=== PATIENT | female | born 1960 | race Hispanic/Latino ===

== ENCOUNTER 2019-11-08 12:13 | Emergency (ER) | payer OTHER, SELFPAY ==
--- NOTE | ~2019-11-08 | XR_ITS ---
EXAMINATION: [id number] DATE: 11/08/2019 12:47 INDICATION: Right anterior rib pain. TECHNIQUE: A frontal view of the chest and 3 views of the right ribs were obtained. COMPARISON: Chest 2 views 04/20/2018 FINDINGS: The chest demonstrates clear lungs without pneumonia, pleural effusion, or pneumothorax. Th e heart size is normal. IMPRESSION: 1. No rib fracture. Reviewed, dictated and finalized at location A. IMPRESSION: 1. No rib fracture.
--- NOTE | 2019-11-08 12:18 | ED.GENADULT ---
HPI - General Adult General Chief complaint: Chest Pain Stated complaint: Rib pain Time Seen by Provider: 11/08/19 12:17 Source: patient Mode of arrival: ambulatory Limitations: no limitations History of Present Illness HPI narrative: 59-year-old female patient presents to the [facility] with complaints of right-sided rib pain x4 days. Patient states that she was leaning over her porch rail hosing down the porch. Patient states that when she came up she is started feeling pain to the right side of the ribs. Patient states he got increasingly worse last night. Patient states she has been trying to take naproxen. Denies any shortness of breath. Denies any pain with inspiration. Patient states she has had fractured rib on the left side before in the past from a fall. Related Data Home Medications Medication Instructions Recorded Confirmed atorvastatin [Lipitor] 10 mg PO DAILY 11/08/19 11/08/19 Allergies Allergy/AdvReac Type Severity Reaction Status Date / Time No Known Allergies Allergy Unverified 11/08/19 12:30 Review of Systems Review of Systems: Narrative: CONSTITUTIONAL: Denies fever, chills, or sweats. EYES: Denies visual changes, redness, or discharge. ENT: Denies rhinorrhea, congestion, sore throat, or otalgia. CARDIOVASCULAR: Denies chest pain, palpitations, or edema. RESPIRATORY: Denies cough or dyspnea. GASTROINTESTINAL: Denies abdominal pain, nausea, vomiting, or diarrhea. GENITOURINARY: Denies dysuria or hematuria. SKIN: Denies rash or itching. MUSCULOSKELETAL: Denies back pain, joint pain, or myalgia. Positive right-sided rib pain x4 days NEUROLOGIC: Denies headache, numbness, or weakness. PSYCHIATRIC: Denies anxiety or depression. [facility] Past Medical History Medical History (Updated 11/08/19 @ 12:57 by LUNA Welch) Asthma Breast cancer GERD (gastroesophageal reflux disease) GI bleed Hypercholesterolemia Rectal polyp Surgical History Surgical History (Updated 11/08/19 @ 12:30 by LUNA Welch) H/O mastectomy Left breast Family History Family History Father Family history of emphysema Social History Social History (Reviewed 11/08/19 @ 12:28 by NANCY Welch Smoking status: Never smoker Alcohol intake: never Gender identity (if verbalized by the patient): Female Comments At the time of my signature I agree with nursing past medical history, surgical, social, and family history. There is no relevant family history pertinent to the presenting complaint. Exam Narrative: Exam Narrative: GENERAL: Well-appearing, well-nourished, and in no acute distress. HEAD: Normocephalic, atraumatic. EYES: PERRLA and EOMI. ENT: Nares clear, no rhinorrhea or epistaxis. Mucous membranes moist. NECK: Supple. No lymphadenopathy CHEST: Clear to auscultation. No respiratory distress. Patient has tenderness around rib 7 on the lateral side. There is no obvious bruising or erythema present on the skin. HEART: Regular rate and rhythm. No murmur heard. Normal peripheral pulses. ABDOMEN: Soft, nontender, nondistended, normal active bowel sounds. EXTREMITIES: Normal range of motion. No edema. SKIN: Warm, dry, no rash. NEURO: No focal deficits. Alert and oriented x3. Course Reevaluation(s) Reevaluation #1: Reevaluated patient after x-ray had resulted. Discussed with patient that her x-ray is negative for any acute fractures. Discussed with her I think that her pain is most likely due to a muscle strain of the chest wall. Discussed with her she can take Tylenol and ibuprofen as needed for the pain, gentle stretching exercises as well as ice and heat to the area to help with the pain. Patient verbalized understanding denies any other questions or concerns at this time. Date: 11/08/19 Time: 12:58 Vital Signs Vital signs: Vital Signs Temperature 37.2 C 11/08/19 12:25 Pulse Rate 70 11/08/19 12:25 Respiratory Rate
[2019-11-08 12:25] VITALS: BP 134/75; PULSE 70; RESP 16; TEMP 37.2; O2SAT 100
== END 2019-11-08 13:00 | disposition home or self-care (01) ==
PROVIDERS: Emergency Provider Nurse Practitioner Family; PCP Student in an Organized Health Care Education/Training Program
DX: S29.011A Strain of muscle and tendon of front wall of thorax, initial encounter (principal); X50.1XXA Overexertion from prolonged static or awkward postures, initial encounter; J45.909 Unspecified asthma, uncomplicated; K21.9 Gastro-esophageal reflux disease without esophagitis; E78.00 Pure hypercholesterolemia, unspecified; Z85.3 Personal history of malignant neoplasm of breast
CPT/HCPCS: 71101; 99213; G0463

== ENCOUNTER 2020-08-13 12:23 | Outpatient (CLI) | payer OTHER, SELFPAY ==
--- NOTE | ~2020-08-13 | DEXA_ITS ---
Bone Density Report Name: Ofelia Costello Age: 60 Sex: Female Ethnicity: Date of : 1960 Indication: osteopenia; prior fracture; postmenopausal Referring Provider: NENITA, PHIL Study: Bone densitometry was performed. Exam Date: August 13, 2020 Accession number: [id number] Bone Density: Region BMD T-score Z-score Classification AP Spine (L1-L4) 0.833 -1.9 -0.5 Osteopenia Femoral Neck (Left) 0.672 -1.6 -0.5 Osteopenia Total Hip (Left) 0.777 -1.4 -0.4 Osteopenia Total Hip Bilateral Avg 0.788 -1.3 -0.4 Osteopenia Femoral Neck (Right) 0.656 -1.7 -0.6 Osteopenia Total Hip (Right) 0.798 -1.2 -0.3 Osteopenia World Health Organization criteria for BMD impression classify patients as: Normal (T-score at or above -1.0), Osteopenia (T-score between -1.0 and -2.5), or Osteoporosis (T-score at or below -2.5). 10-year Fracture Risk(1): Major Osteoporotic Fracture 8.4% Hip Fracture 0.9% Reported Risk Factors: [place] (), Neck BMD=0.656, BMI=25.1, previous fracture (1) FRAX(R) Version 3.08. Fracture probability calculated for an untreated patient. Fracture probability may be lower if the patient has received treatment. Previous Exams: Region Exam Age BMD T-score BMD Change BMD Change Date g/cm2 vs Baseline vs Previous AP Spine(L1-L4) 08/13/2020 60 0.833 -1.9 -0.277(-25.0%) -0.050(-5.7%)* 06/23/2016 55 0.883 -1.5 -0.227(-20.4%) -0.056(-6.0%)* 12/06/2013 53 0.940 -1.0 -0.170(-15.3%) -0.038(-3.9%)# 09/10/2011 51 0.978 -0.6 -0.132(-11.9%) -0.093(-8.7%)# 09/02/2009 49 1.071 0.2 -0.039(-3.5%)* -0.039(-3.5%)* 06/19/2007 46 1.110 0.6 Total Hip(Left) 08/13/2020 60 0.777 -1.4 -0.121(-13.4%) -0.007(-0.9%) 06/23/2016 55 0.784 -1.3 -0.114(-12.7%) -0.020(-2.5%) 12/06/2013 53 0.804 -1.1 -0.094(-10.4%) -0.048(-5.6%)# 09/10/2011 51 0.852 -0.7 -0.046(-5.1%)# -0.039(-4.4%)# 09/02/2009 49 0.891 -0.4 -0.007(-0.8%) -0.007(-0.8%) 06/19/2007 46 0.898 -0.4 Total Hip(Right) 08/13/2020 60 0.798 -1.2 -0.155(-16.2%) -0.038(-4.5%)* 06/23/2016 55 0.837 -0.9 -0.116(-12.2%) -0.017(-2.0%) 12/06/2013 53 0.853 -0.7 -0.100(-10.5%) -0.026(-2.9%)# 09/10/2011 51 0.879 -0.5 -0.074(-7.7%)# -0.057(-6.0%)# 09/02/2009 49 0.936 -0.1 -0.017(-1.8%) -0.017(-1.8%) 06/19/2007 46 0.953 0.1 *Denotes significance at 95% confidence level, LSC for AP Spine = 0.022 g/cm2, LSC for Total Hip = 0.027 g/cm2 Clinical Information Provided by Patient:
== END 2020-08-13 12:24 | disposition home or self-care (01) ==
PROVIDERS: PCP Student in an Organized Health Care Education/Training Program; Visit Provider Nurse Practitioner
DX: Z78.0 Asymptomatic menopausal state (principal); M85.88 Other specified disorders of bone density and structure, other site; M85.852 Other specified disorders of bone density and structure, left thigh; M85.851 Other specified disorders of bone density and structure, right thigh
CPT/HCPCS: 77080

== ENCOUNTER 2020-11-05 13:06 | Outpatient (CLI) | payer OTHER, SELFPAY ==
--- NOTE | ~2020-11-05 | MM_ITS ---
EXAMINATION: screening [facility] BI w alexis HISTORY: Screening mammogram TECHNIQUE: Craniocaudal and mediolateral oblique 3-D tomosynthesis images were obtained and synthetic 2-D images were generated. CAD analysis was submitted and interpreted. COMPARISON: 01/29/2019, 01/24/2019, 01/13/2018, 01/10/2017 BREAST PARENCHYMAL COMPOSITION: There are scattered areas of fibroglandular density. FINDINGS: A stable asymmetry is noted in the posterior third of the right breast on the craniocaudal view. There is no evidence of suspicious mass, calcification, or architectural distortion to suggest malignancy in either breast. There has been no suspicious interval change. IMPRESSION: 1. No mammographic evidence of malignancy. 2. Recommend routine screening mammography in one year. BI-RADS Category 2: Benign finding(s). Reviewed, dictated and finalized at location A.
== END 2020-11-05 13:07 | disposition home or self-care (01) ==
LOC: ANHIMG 13:13
PROVIDERS: PCP Student in an Organized Health Care Education/Training Program; Visit Provider Obstetrics & Gynecology Gynecology
DX: Z12.31 Encounter for screening mammogram for malignant neoplasm of breast (principal)
CPT/HCPCS: 77063; 77067

== ENCOUNTER 2021-03-12 06:16 | Inpatient (IN) | payer OTHER, SELFPAY ==
[2021-03-12] VITALS (15 sets, daily range): BP systolic 100–135; BP diastolic 50–78; PULSE 64–96; RESP 12–18; TEMP 36.8–37.5; O2SAT 93–100
--- NOTE | ~2021-03-12 | CT_ITS ---
EXAMINATION: CT abdomen pelvis w con INDICATION: Upper abdominal pain, fever TECHNIQUE: Computed tomographic images of the abdomen and pelvis were obtained after the administrati on of 100 cc of Omnipaque 350 intravenous contrast. The dose-length product (DLP) was 377.96 mGy-cm. Automated exposure control and iterative reconstruction technique were employed. COMPARISON: 08/13/2018 FINDINGS: Minimal dependent atelectasis is present in the lung bases. The heart size is normal. The l iver, spleen, pancreas, gallbladder, and adrenal glands are normal. The kidneys are unremarkable. No pathologically enlarged abdominal or pelvic lymph nodes are identified. There is no evidence of bowel obstruction. Colonic diverticulosis is noted. There is an approximately 5 cm segment of wall thicken ing in the proximal/mid transverse colon. There appears to be an intramural abscess of the colonic wa ll. There is edematous stranding of the adjacent pericolic fat with tiny foci of extraluminal gas. Th e appendix is normal. There is mild lumbar spondylosis. IMPRESSION: 1. Perforated diverticulitis of the transverse colon with possible intramural abscess. These findings were discussed with Dr. Lisseth Andrea MD in the Emergency Department at 0818 hours on 03/12/2021. Reviewed, dictated and finalized at location B. [employer] IMPRESSION: 1. Perforated diverticulitis of the transverse colon with possible intramural a bscess. These findings were discussed with Dr. Lisseth Andrea MD in the Emergen cy Department at 0818 hours on 03/12/2021.
[2021-03-12 07:00] LABS: Add Urine Microscopic? YES; Appearance Urine Cloudy (Clear); Bilirubin Urine Negative (Negative); Blood Urine 2+ (Negative); Color Urine Yellow (Yellow); Glucose Urine UA Negative (Negative); Ketones Urine Negative (Negative); Leukocyte Esterase Ur Trace LEU/UL (Negative); Mucus Urine Rare /lpf; Nitrate Urine Negative (Negative); Protein Urine 1+ mg/dL (Negative); RBC Urine >75 /hpf (0-2); Specific Grav Ur 1.018 (1.001-1.035); Squamous Epithelial Cell Urine Occasional /hpf (Few); Urobilinogen Urine Negative mg/dL (<2.0); WBC Urine 0-3 /hpf
[2021-03-12 07:05] LABS: Basophils Percent Auto 0.4 % (0.2-1.2); Eosinophils Absolute Auto 0.1 K/mm3 (0-0.3); Eosinophils Percent Auto 1.2 % (0-4.4); Hematocrit 35.9 % (37.0-47.0); Immature Granulocyte Absolute 0.03 K/mm3 (0.00-0.031); Immature Granulocyte Percent A 0.4 % (0-0.5); Lymphocytes Absolute Auto 1.49 K/mm3 (0.9-3.2); Lymphocytes Percent Auto 19.2 % (18.3-44.2); Mean Corpuscular HGB Conc 33.4 g/dl (32-36); Mean Corpuscular Volume 92.8 fl (80-100); Mean Platelet Volume 9.8 fl (7.4-10.4); Monocytes Absolute Auto 0.8 K/mm3 (0.1-0.6); Monocytes Percent Auto 10.3 % (2.6-8.5); Neutrophils Absolute Auto 5.3 K/mm3 (1.3-6.7); Neutrophils Percent Auto 68.5 % (45.5-73.1); Platelet Count Result 213 k/mm3 (150-375); Red Blood Count 3.87 M/mm3 (4.2-5.4); Red Cell Distribution Width 12.7 % (11.5-14.5); White Blood Count 7.8 K/mm3 (4.5-10.0)
[2021-03-12 07:16] LABS: Alanine Aminotransferase 29 U/L (4-35); Albumin Level 4.2 g/dL (3.5-5.1); Alkaline Phosphatase 102 U/L (38-126); Anion Gap 6 mmol/L (8-16); Aspartate Amino Transferase 46 U/L (14-36); Bilirubin,Total 0.6 mg/dL (0.2-1.3); Blood Urea Nitrogen 9 mg/dL (7-17); Calcium 8.7 mg/dL (8.4-10.2); Carbon Dioxide 28 mmol/L (22-30); Chloride 103 mmol/L (98-107); Estimated CRCL calculation 82 ml/min; Estimated Glomerular Filt Rate > 60; Glucose 122 mg/dL (65-110); Lipase 85 U/L (23-300); Potassium 3.7 mmol/L (3.4-5.0); Sodium 137 mmol/L (137-145)
[2021-03-12 07:17] LABS: Lactic Acid Reflex 0.8 mmol/L (0.7-2.1)
[2021-03-12] MEDS: SODIUM CHLORIDE 0.9% IV 1,000 ML 999 ML IV CONT (07:38)
[2021-03-12] MEDS: MORPHINE SULFATE (*CRX) 4 MG/ML INJ IV PUSH ×2 (07:38→13:03)
[2021-03-12] MEDS: ONDANSETRON INJ 4 MG/2 ML VIAL IV PUSH (07:38)
[2021-03-12] MEDS: metroNIDAZOLE 500 MG/ISO 100ML 500 MG/100 ML BAG 100 MG IVPB (08:44)
--- NOTE | 2021-03-12 08:57 | ED.ABDPAIN ---
HPI - Abdominal Pain General Chief Complaint: Abdominal Pain Stated Complaint: lower ABD pain x4 Time Seen by Provider: 03/12/21 07:30 Source: patient and family Mode of arrival: ambulatory Limitations: no limitations History of Present Illness HPI narrative: Patient complaining of right abdominal pain started on March 09, constant, gradually getting worse, low-grade fever, denies any nausea, vomiting, diarrhea. Patient reports to having constipation in the last 2 to 3 days, the pain started after taking laxative. Patient denies history of abdominal surgery. Pain gets worse with anything, nothing make it better. Related Data Allergies Allergy/AdvReac Type Severity Reaction Status Date / Time No Known Allergies Allergy Verified 03/12/21 07:36 Review of Systems Review of Systems: CONSTITUTIONAL: Denies fever, chills, or sweats. EYES: Denies visual changes, redness, or discharge. ENT: Denies rhinorrhea, congestion, sore throat, or otalgia. CARDIOVASCULAR: Denies chest pain, palpitations, or edema. RESPIRATORY: Denies cough or dyspnea. GASTROINTESTINAL: Denies abdominal pain, nausea, vomiting, or diarrhea. GENITOURINARY: Denies dysuria or hematuria. SKIN: Denies rash or itching. MUSCULOSKELETAL: Denies back pain, joint pain, or myalgia. NEUROLOGIC: Denies headache, numbness, or weakness. PSYCHIATRIC: Denies anxiety or depression. Exam Narrative: General appearance: Well-developed, well-nourished Skin: Normal color Head: Normocephalic, nontraumatic Eyes: Clear conjunctiva ENT: Oropharynx normal, ears normal, nose normal Neck: Supple, nontender Chest and respiratory: Airway patent, no respiratory distress, no accessory muscle use Heart: Regular rate/rhythm Abdomen: Soft, severe diffuse tenderness right upper and right lower quadrant with guarding and rebound, quiet bowel sounds Vascular: Normal peripheral pulses, normal capillary refill. Musculoskeletal: Normal range of motion, nontender back Neurologic: Alert and oriented ?3, [employer] is normal as tested, no gross motor deficit Course Course Emergency Course: Stable Consultations Consultation #1: DR FISHER. Requested Zosyn instead of Levaquin and Flagyl Date: 03/12/21 Time: 09:02 Vital Signs Vital signs: Vital Signs Temperature 37.5 C 03/12/21 06:30 Pulse Rate 96 03/12/21 06:30 Respiratory Rate 18 03/12/21 06:30 Blood Pressure 119/74 03/12/21 06:30 Pulse Oximetry 98 03/12/21 06:30 Temperature 37.5 C 03/12/21 06:30 Pulse Rate 96 03/12/21 06:30 Respiratory Rate 18 03/12/21 06:30 Blood Pressure 119/74 03/12/21 06:30 Pulse Oximetry 98 03/12/21 06:30 MDM - Abdominal Pain MDM Narrative Medical decision making narrative: Right abdominal pain. My differential diagnosis as below. Labs, IV fluid, IV morphine and Zofran, CT abdomen pelvis with IV contrast ordered. Differential Diagnosis Differential diagnosis: Likely abdominal pain, acute appendicitis, calculus of kidney, constipation, diverticulitis and small bowel obstruction Lab Data Result diagrams: 03/12/21 06:56 03/12/21 06:56 Labs: Lab Results 03/12/21 03/12/21 03/12/21 Range/Units 06:50 06:56 06:56 WBC 7.8 (4.5-10.0) K/mm3 RBC 3.87 L (4.2-5.4) M/mm3 Hgb 12.0 (12.0-15.0) g/dL Hct 35.9 L (37.0-47.0) % MCV 92.8 (80-100) fl MCH 31.0 (26-34) pg MCHC 33.4 (32-36) g/dl RDW 12.7 (11.5-14.5) % Plt Count 213 (150-375) k/mm3 MPV 9.8 (7.4-10.4) fl Immature Gran % (Auto) 0.4 (0-0.5) % Neut % (Auto) 68.5 (45.5-73.1) % Lymph % (Auto) 19.2 (18.3-44.2) % [place] % (Auto) 10.3 H (2.6-8.5) % Eos % (Auto) 1.2 (
--- NOTE | 2021-03-12 09:01 | PC.NURSE ---
Per CAMELIA Andrea, stop Flagyl administration and start Zosyn IV.
--- NOTE | 2021-03-12 11:49 | PM.CNGS ---
Assessment and Plan Assessment and plan (1) Diverticulitis of colon with perforation: Code(s): K57.20 - Diverticulitis of large intestine with perforation and abscess without bleeding Status: Acute Assessment and Plan: CT scan reviewed and discussed with the patient in detail. There is evidence of suspected diverticulitis of the proximal to mid transverse colon with microperforation and possible intramural abscess. This is an atypical area for diverticulitis. The patient reports a history of colonoscopies here at [facility]. It appears she had a colonoscopy by Dr. Linton in December of 2017, but I am unable to find the report. Will continue to treat this as an acute diverticulitis with broad-spectrum IV antibiotics, IV fluids, bowel rest, and analgesics. Hopefully, this will continue to improve with conservative measures. Once this acute episode has resolved, she will likely need to be referred back to GI for a colonoscopy. Will continue to follow with serial abdominal exams and labs. Thank you for allowing us to see the patient in consultation and we will continue to follow along with you. Additional Plan I have discussed the patient's case and plan of care with Dr. Dietrich. History of Present Illness Consult details Consult date: 03/12/21 Reason for consult: other (Perforated diverticulitis of the transverse colon noted on CT) Requesting physician: Lisseth Andrea MD Narrative: This is a 60-year-old female who presented to the ER with complaints of RUQ abdominal pain and low-grade fever. She reports taking a laxative for mild constipation on Tuesday, three days ago, and shortly after this dose, she began to have RUQ abdominal pain. The pain persisted over the next few days and she developed a low-grade fever. Yesterday, she felt the pain was worsening and started to be aggravated by walking. Due to this, she decided to come into the ER today for evaluation. CT scan of the abdomen and pelvis showed proximal to mid transverse colon diverticulitis with microperforation and a possible small intramural abscess. Labs showed a normal white blood cell count, and vital signs stable with a temperature of 99.5F in the ER. The patient is being admitted to the Hospitalist and started on IV Zosyn. Our service was consulted for the perforated diverticulitis. She was seen in the ER. She reports her abdominal pain improved some with the Morphine. She denies any recent nausea, vomiting, or changes in her bowels. She does report bloating. No recent diarrhea or blood noted in her stools. She denies a history of diverticulitis. Her last bowel movement was yesterday and normal for her. She has had three colonoscopies in the past reportedly with polypectomy of benign pathology. No other reported findings. She has no history of abdominal surgery. Review of Systems Review of Systems: All systems reviewed & are unremarkable except as noted in HPI and below Constitutional: Constitutional: Reports as per HPI, Reports chills, Denies fatigue and Reports fever(s) Eyes: Eyes: Reports no additional eye complaints ENT: Reports system reviewed and no additional complaints, except as documented and Reports Normal hearing present Cardiovascular: Cardiovascular: Reports no additional cardiovascular complaints, Denies chest pain and Denies leg edema Respiratory: Respiratory: Reports no additional respiratory complaints, Denies cough and Denies dyspnea Gastrointestinal: Gastrointestinal: Reports as per HPI, Reports no additional gastrointestinal complaints, Reports abdominal pain, Denies melena, Reports bloating, Denies hematochezia, Denies change in bowel habits, Denies change in stool character, Denies diarrhea, Denies nausea and Denies vomiting Genitourinary: Genitourinary: Denies hematuria and Denies dysuria Musculoskeletal: Musculoskeletal: Reports no additional musculoskeletal complaints Neurologic: Reports system reviewed and no additional complaints, e
--- NOTE | 2021-03-12 12:15 | ADMGEN ---
This patient, Ofelia Costello, was admitted to Medical Room 250-01. Patient/family oriented to hospital policies and general routines including ID bracelet, bed and alarms, visiting hours, pain management, procedures, bathroom and other care routines, personal items, smoking policy, room service/diet, and visiting hours. Information on how to activate the Rapid Response Team has been discussed. Patient/Family are encouraged to report perceived risks to care and to ask questions if they do not understand what they are told or what they should do.
[2021-03-12] MEDS: LACTATED RINGERS 1,000 ML 150 ML IV CONT (13:03)
--- NOTE | 2021-03-12 13:45 | PM.IMHP ---
H&P: HPI History of Present Illness Date/Time: 03/12/21 13:45 Chief Complaint: Abdominal pain. Narrative: This is a very pleasant 60-year-old female with hyperlipidemia who presented to the emergency department earlier this morning for evaluation of abdominal pain. She reports the gradual onset of right side abdominal discomfort starting approximately 4 days ago. Initially she thought she may be constipated and took a laxative however not long thereafter she developed pretty severe right mid and upper quadrant abdominal pain that she has a difficult time describing, possibly squeezing in nature. She also feels bloated and has been belching and passing gas much more than usual. Her symptoms seem to be worse at night and she denies any significant aggravating factors. She has been taking ibuprofen periodically and that seems to take the edge off however it sounds as though it has been pretty constant. Additionally she reports hot flashes and subjective low-grade fever. CT of the abdomen and pelvis showed proximal to mid transverse colon diverticulitis with micro perforation and possible small intramural abscess, and she is being admitted in this setting. At the time of my evaluation she continues to have some mild discomfort although her main complaint is that of thirst. Her appetite has been okay and she denies nausea and vomiting. She had a normal albeit soft bowel movement early this morning. She has not noticed any blood or mucus in the stool. She has never had similar symptoms in the past. She has no known history of diverticulosis or diverticulitis. Review of Systems Review of Systems: Twelve systems were reviewed. No chills. No cold or flu symptoms. She has not had chest pain or shortness of breath. No dysuria or gross hematuria. Urinalysis did demonstrate microscopic hematuria for which the patient has been extensively evaluated over the years with no apparent etiology. Except as documented, all other systems were reviewed and are negative. [facility] Past Medical History Medical History (Updated 03/12/21 @ 15:11 by Amalia Kilgore PA-C) Hyperlipidemia Microscopic hematuria Dating back many years for which she has been extensively evaluated with no significant obvious etiology. Osteopenia Surgical History Surgical History (Updated 03/12/21 @ 15:06 by Amalia Kilgore PA-C) History of colonoscopy with polypectomy History of left breast biopsy Breast duct excision. Family History Family History Sibling Diverticulitis Social History Social History (Updated 03/12/21 @ 15:07 by Amalia Kilgore PA-C) Social History: Surrogate decision maker: Dani Costello, spouse. Code status: Full code. Smoking status: Never smoker Alcohol intake: never Substance use: never Living arrangements: with family Additional living arrangements comments: The patient lives with her and son in [place]. She is originally from [facility]. Occupation/Education: unemployed Meds Home Medications and Allergies Home Medications Medication Instructions Recorded Confirmed Type Lacto.acidophilus-Bif.animalis 1 cap PO DAILY 03/12/21 03/12/21 History [Daily Probiotic] atorvastatin 10 mg PO DAILY 03/12/21 03/12/21 History ibandronate 150 mg PO MONTHLY 03/12/21 03/12/21 History Allergies Allergy/AdvReac Type Severity Reaction Status Date / Time No Known Allergies Allergy Verified 03/12/21 07:36 Vital Signs Vital Signs - 24 hr 03/12/21 06:30 03/12/21 08:13 03/12/21 08:20 Temperature 99.5 F Pulse Rate 96 73 72 Respiratory Rate 18 14 17 Blood Pressure 119/74 Pulse Oximetry 98 98 97 03/12/21 08:30 03/12/21 08:31 03/12/21 08:45 Temperature Pulse Rate 76 77 71 Respiratory Rate 14 13 15 Blood Pressure 135/78 Pulse Oximetry 99 98 97 03/12/21 09:00 03/12/21 09:01 03/12/21 09:53 Temperature Pulse Rate 66 67 76 Respirator
[2021-03-12] MEDS: LACTATED RINGERS 1,000 ML 75 ML IV CONT (23:25)
[2021-03-13] VITALS: BP 100/56; PULSE 69; RESP 18; TEMP 36.4; O2SAT 97
[2021-03-13 04:00] VITALS: BP 106/62; PULSE 55; RESP 18; TEMP 36.3; O2SAT 96
[2021-03-13 05:49] LABS: Basophils Percent Auto 0.6 % (0.2-1.2); Eosinophils Absolute Auto 0.1 K/mm3 (0-0.3); Eosinophils Percent Auto 2.3 % (0-4.4); Hematocrit 33.3 % (37.0-47.0); Hemoglobin 11.1 g/dL (12.0-15.0); Immature Granulocyte Absolute 0.01 K/mm3 (0.00-0.031); Immature Granulocyte Percent A 0.2 % (0-0.5); Lymphocytes Absolute Auto 1.48 K/mm3 (0.9-3.2); Lymphocytes Percent Auto 28.3 % (18.3-44.2); Mean Corpuscular HGB Conc 33.3 g/dl (32-36); Mean Platelet Volume 9.8 fl (7.4-10.4); Monocytes Absolute Auto 0.5 K/mm3 (0.1-0.6); Monocytes Percent Auto 9.4 % (2.6-8.5); Neutrophils Absolute Auto 3.1 K/mm3 (1.3-6.7); Neutrophils Percent Auto 59.2 % (45.5-73.1); Platelet Count Result 217 k/mm3 (150-375); Red Blood Count 3.58 M/mm3 (4.2-5.4); Red Cell Distribution Width 12.5 % (11.5-14.5); White Blood Count 5.2 K/mm3 (4.5-10.0)
[2021-03-13 06:06] LABS: Anion Gap 4 mmol/L (8-16); Blood Urea Nitrogen 7 mg/dL (7-17); Calcium 8.4 mg/dL (8.4-10.2); Carbon Dioxide 30 mmol/L (22-30); Chloride 103 mmol/L (98-107); Estimated CRCL calculation 82 ml/min; Estimated Glomerular Filt Rate > 60; Glucose 115 mg/dL (65-110); Magnesium 2.4 mg/dL (1.6-2.3); Potassium 3.8 mmol/L (3.4-5.0); Sodium 137 mmol/L (137-145)
[2021-03-13 06:19] LABS: CRP 12.1 mg/dL (<1.0)
[2021-03-13 08:00] VITALS: BP 110/60; PULSE 60; RESP 18; TEMP 36.5; O2SAT 96
--- NOTE | 2021-03-13 11:34 | PM.IMPN ---
Progress Note: A&P Assessment and Plan (1) Diverticulitis of colon with perforation: Code(s): K57.20 - Diverticulitis of large intestine with perforation and abscess without bleeding Status: Acute Assessment and Plan: CT showed perforated diverticulitis of the transverse colon with possible intramural abscess. General surgery consultation is appreciated. Hopefully this will resolve with conservative treatment including bowel rest. She is NPO at this time. Continue gentle IV fluids while NPO. Advance diet per general surgery. Continue IV Zosyn Analgesics available as needed Patient will need to be referred back to Dr. Linton for colonoscopy once this resolves. (2) Hyperlipidemia: Code(s): E78.5 - Hyperlipidemia, unspecified Status: Chronic Assessment and Plan: Statin on hold for now as she is NPO. Resume once diet is advanced. (3) Microscopic hematuria: Code(s): R31.29 - Other microscopic hematuria Status: Acute Assessment and Plan: A longstanding issue for the patient for which she was extensively worked up in the past. No significant findings on CT. (4) Normocytic anemia: Code(s): D64.9 - Anemia, unspecified Status: Acute Assessment and Plan: Slight decline in hemoglobin and hematocrit on labs today. May be related to diverticulitis vs dilutional effects from IV fluids. Continue to monitor H&H daily Subjective Date/time seen: 03/13/21 11:34 Interval history: Date of service: 03/13/2021 Ofelia Costello is a 60-year-old female with a history of breast cancer s/p mastectomy, hyperlipidemia, asthma, and GERD who is seen in follow-up for diverticulitis perforation abscess. She is doing very well today. She does have some abdominal pain just above the umbilicus that she rates as 4/10. Reports that is only bothersome when it is pressed on and just resting now she is comfortable. She denies any nausea, vomiting, fever, or chills. She has not had a bowel movement today but is passing gas. She is NPO at this time with the exception of ice chips which she is tolerating without difficulty. She denies shortness breath, cough, chest pain, palpitations. Denies dizziness or lightheadedness. No urinary symptoms. She requests to take a shower. Review of Systems Review of Systems: All systems reviewed & are unremarkable except as noted in HPI and below Exam Narrative: Ms. Costello is a well-nourished, well-appearing 60-year-old female who is sitting up in bed. She appears comfortable and is in NARD. Neuro: awake, alert and oriented x4, speech clear, no focal neuro deficits noted HEENMT: normocephalic, atraumatic, EOMI, sclerae anicteric, moist oral mucosa, wearing eyeglasses Neck: supple, no lymphadenopathy Respiratory: clear to auscultation bilaterally, nonlabored breathing Cardio: regular rate, regular rhythm with S1-S2 Abdomen: nondistended, normoactive bowel sounds, soft, minimally tender to palpation in the periumbilical region Extremities: no edema, erythema, or tenderness to palpation, DP pulses 2+ bilaterally Skin: no rashes or lesions, warm and dry Psych: appropriate mood and affect, judgment and insight intact Objective Data Vital Signs Vital Signs: Vital Signs - 24 hr 03/12/21 12:45 03/12/21 20:00 03/12/21 22:00 Temperature 98.4 F 98.2 F 98.2 F Pulse Rate 71 69 64 Respiratory Rate 16 18 16 Blood Pressure 118/61 100/50 L 100/50 L Pulse Oximetry 93 97 94 03/13/21 00:00 03/13/21 04:00 03/13/21 08:00 Temperature 97.6 F 97.4 F L 97.7 F Pulse Rate 69 55 L 60 Respiratory Rate 18 18 18 Blood Pressure 100/56 L 106/62 110/60 Pulse Oximetry 97 96 96 Intake/Output Intake/Output: Intake & Output 03/10/21 03/11/21 03/12/21 03/13/21 23:59 23:59 23:59 23:59 Intake Total 2150 824 Output Total 350 600 Balance 1800 224 Meds/Results Medications: Active Medications Generic Name Dose Route
[2021-03-13] MEDS: LACTATED RINGERS 1,000 ML 75 ML IV CONT (11:56)
[2021-03-13 12:00] VITALS: BP 118/63; PULSE 80; RESP 18; TEMP 36.5; O2SAT 96
--- NOTE | 2021-03-13 12:27 | PM.PNGS ---
Progress Note: A&P Assessment and Plan (1) Diverticulitis of colon with perforation: Code(s): K57.20 - Diverticulitis of large intestine with perforation and abscess without bleeding Status: Acute Assessment and Plan: pain improving. Will start clear liquid diet today. Continue IV Zosyn. Possibly home in the next 1-2 days if diet able to be advanced. Subjective Subjective Date/Time Seen: 03/13/21 12:27 Interval history: Pain improving and new fevers. States that she has minimal pain currently. She is hungry. Exam GI: Inspection: normal to inspection GI Palp: Yes Tenderness to palpation present (GI) ( Right upper quadrant), No Guarding due to palpation present (GI) and No Rebound tenderness present Auscultation: normal bowel sounds Objective Data Vital Signs Vital Signs: Vital Signs - 24 hr 03/12/21 12:45 03/12/21 20:00 03/12/21 22:00 Temperature 36.9 C 36.8 C 36.8 C Pulse Rate 71 69 64 Respiratory Rate 16 18 16 Blood Pressure 118/61 100/50 L 100/50 L Pulse Oximetry 93 97 94 03/13/21 00:00 03/13/21 04:00 03/13/21 08:00 Temperature 36.4 C 36.3 C L 36.5 C Pulse Rate 69 55 L 60 Respiratory Rate 18 18 18 Blood Pressure 100/56 L 106/62 110/60 Pulse Oximetry 97 96 96 03/13/21 12:00 Temperature 36.5 C Pulse Rate 80 Respiratory Rate 18 Blood Pressure 118/63 Pulse Oximetry 96 Intake/Output Intake/Output: Intake & Output 03/10/21 03/11/21 03/12/21 03/13/21 23:59 23:59 23:59 23:59 Intake Total 2150 1824 Output Total 350 600 Balance 1800 1224 Meds/Results Medications: Active Medications Generic Name Dose Route Start Last Admin Trade Name Freq PRN Reason Stop Dose Admin Lactated Ringer's 1,000 mls @ 75 mls/hr 03/12/21 10:20 03/13/21 11:56 Lr - Lactated Ringers Iv IV CONT 75 mls/hr .[id number] CELSA Administration Piperacillin/Tazobactam/Dextrose 3.375 gm in 50 mls @ 100 mls/hr 03/12/21 18:00 03/13/21 11:52 Zosyn 3.375 Gm/D5w 50ml Pm IVPB 100 mls/hr Q6HR CELSA Administration Morphine Sulfate 4 mg 03/12/21 10:18 03/12/21 13:03 Morphine Sulfate (*Crx) 4 Mg/Ml Inj IV PUSH 4 mg Q2H PRN Administration Pain Rated 7-10 Ondansetron HCl 4 mg 03/12/21 10:18 Ondansetron Inj 4 Mg/2 Ml Vial IV PUSH Q4H PRN Nausea Radiology Results: ITS Impressions Abdomen/Pelvis CT 03/12/21 08:06 IMPRESSION: 1. Perforated diverticulitis of the transverse colon with possible intramural abscess. These findings were discussed with Dr. Lisseth Andrea MD in the Emergency Department at 0818 hours on 03/12/2021. Labs Labs: Laboratory Results - last 24 hr 03/13/21 03/13/21 05:32 05:32 WBC 5.2 RBC 3.58 L Hgb 11.1 L Hct 33.3 L MCV 93.0 MCH 31.0 MCHC 33.3 RDW 12.5 Plt Count 217 MPV 9.8 Immature Gran % (Auto) 0.2 Neut % (Auto) 59.2 Lymph % (Auto) 28.3 [place] % (Auto) 9.4 H Eos % (Auto) 2.3 Baso % (Auto) 0.6 Lymph # (Auto) 1.48 [place] # (Auto) 0.5 Eos # (Auto) 0.1 Baso # (Auto) 0.0 Abs Immat Gran (auto) 0.01 Absolute Neuts (auto) 3.1 Absolute Nucleated RBC 0.0 Nucleated RBC % 0.0 Sodium 137 Potassium 3.8 Chloride 103 Carbon Dioxide 30 Anion Gap 4 L BUN 7 Creatinine 0.60 L Estim Creat Clear Calc 82 Estimated GFR > 60 Glucose 115 H Calcium 8.4 Magnesium 2.4 H C-Reactive Protein 12.1 H Quality VTE Prophylaxis VTE prophylaxis: mechanical ordered
[2021-03-13 16:00] VITALS: BP 115/88; PULSE 67; RESP 18; TEMP 36.9; O2SAT 100
[2021-03-13 20:00] VITALS: BP 132/64; PULSE 70; RESP 14; RESP 18; TEMP 36.7; O2SAT 98; O2SAT 99
[2021-03-14] VITALS: BP 110/56; PULSE 69; RESP 14; TEMP 36.3; O2SAT 99
[2021-03-14 04:00] VITALS: BP 110/58; PULSE 62; RESP 14; TEMP 36.6; O2SAT 96
[2021-03-14] MEDS: LACTATED RINGERS 1,000 ML 75 ML IV CONT (04:10)
[2021-03-14 06:17] LABS: Hematocrit 35.5 % (37.0-47.0); Hemoglobin 11.8 g/dL (12.0-15.0); Mean Corpuscular HGB Conc 33.2 g/dl (32-36); Mean Corpuscular Hemoglobin 31.1 pg (26-34); Mean Corpuscular Volume 93.7 fl (80-100); Mean Platelet Volume 9.9 fl (7.4-10.4); Platelet Count Result 234 k/mm3 (150-375); Red Blood Count 3.79 M/mm3 (4.2-5.4); Red Cell Distribution Width 12.3 % (11.5-14.5); White Blood Count 4.7 K/mm3 (4.5-10.0)
[2021-03-14 06:37] LABS: Anion Gap 8 mmol/L (8-16); Blood Urea Nitrogen 5 mg/dL (7-17); CRP 5.3 mg/dL (<1.0); Calcium 8.5 mg/dL (8.4-10.2); Carbon Dioxide 27 mmol/L (22-30); Chloride 106 mmol/L (98-107); Estimated CRCL calculation 97 ml/min; Estimated Glomerular Filt Rate > 60; Glucose 115 mg/dL (65-110); Potassium 3.4 mmol/L (3.4-5.0); Sodium 141 mmol/L (137-145)
--- NOTE | 2021-03-14 09:43 | PM.PNGS ---
Progress Note: A&P Assessment and Plan (1) Diverticulitis of colon with perforation: Code(s): K57.20 - Diverticulitis of large intestine with perforation and abscess without bleeding Status: Acute Assessment and Plan: pain improving. Was up to a full liquid diet today. Continue IV Zosyn. Home if diet able to be advanced. I will put in for oral antibiotics for her to begin at home tonight. Would suggest that she get her noon dose of antibiotic here with the IV Zosyn and then okay to be discharged. Additional Plan She needs to go home on a low-fiber diet with plans to switch to a high-fiber diet after she sees Dr. Dietrich in 2 weeks.. Subjective Subjective Date/Time Seen: 03/14/21 09:43 Patient reports: no new complaints and feels better Interval history: The patient is sitting on the side of the bed when I entered the room. She states that she feels pretty good. Still has a little tenderness when she pushes in the right upper quadrant but has had several small loose bowel movements. Tolerated a full liquid breakfast. Review of Systems Review of Systems: All systems reviewed & are unremarkable except as noted in HPI and below Constitutional: Constitutional: Reports as per HPI, Denies chills and Denies fever(s) Cardiovascular: Cardiovascular: Denies chest pain and Denies dyspnea Respiratory: Respiratory: Reports no additional respiratory complaints and Denies dyspnea Gastrointestinal: Gastrointestinal: Reports as per HPI and Denies bloating Musculoskeletal: Musculoskeletal: Reports no additional musculoskeletal complaints Neurologic: Denies memory loss Psychiatric: Psychiatric: Denies anxiety and Denies memory loss Exam Const: General: comfortable, no acute distress, alert and awake Nutritional Appearance: average body habitus HENMT: Head: normocephalic and atraumatic Ears: hearing grossly normal bilaterally Mouth: Yes moist mucous membranes Resp: Effort & Inspection: no respiratory distress Auscultation: clear to auscultation bilaterally GI: Inspection: normal to inspection, no scars and other (mildly distended) Auscultation: normal bowel sounds Rectal Exam: deferred Skin: General skin exam: normal color and no rashes or lesions noted Neuro: General: moves all extremities and no focal motor deficits Cranial nerves: Yes CN's II-XII intact bilaterally and Yes Equal, round and reactive pupils present Speech: normal speech Motor exam (neuro): 5/5 motor strength present throughout Extrem: General: normal to inspection and no clubbing, cyanosis or edema Objective Data Vital Signs Vital Signs: Vital Signs - 24 hr 03/13/21 12:00 03/13/21 16:00 03/13/21 20:00 Temperature 36.5 C 36.9 C 36.7 C Pulse Rate 80 67 70 Respiratory Rate 18 18 18 Blood Pressure 118/63 115/88 132/64 Pulse Oximetry 96 100 99 03/14/21 00:00 03/14/21 04:00 Temperature 36.3 C L 36.6 C Pulse Rate 69 62 Respiratory Rate 14 14 Blood Pressure 110/56 L 110/58 L Pulse Oximetry 99 96 Intake/Output Intake/Output: Intake & Output 03/11/21 03/12/21 03/13/21 03/14/21 23:59 23:59 23:59 23:59 Intake Total 2150 2854 9591 Output Total 350 600 Balance 1800 2254 9591 Meds/Results Medications: Active Medications Generic Name Dose Route Start Last Admin Trade Name Freq PRN Reason Stop Dose Admin Lactated Ringer's 1,000 mls @ 75 mls/hr 03/12/21 10:20 03/14/21 04:10 Lr - Lactated Ringers Iv IV CONT 75 mls/hr .[id number] CELSA Administration Piperacillin/Tazobactam/Dextrose 3.375 gm in 50 mls @ 100 mls/hr 03/12/21 18:00 03/14/21 05:40 Zosyn 3.375 Gm/D5w 50ml Pm IVPB Infused Q6HR CELSA Infusion Morphine Sulfate 4 mg 03/12/21 10:18 03/12/21 13:03 Morphine Sulfate (*Crx) 4 Mg/Ml Inj IV PUSH 4 mg Q2H PRN Administration Pain Rated 7-10 Ondansetron HCl 4 mg 03/12/21 10:18 Ondansetron Inj 4 Mg/2 Ml Vial IV PUSH Q4H PRN Nausea Radiology Results: ITS Im
[2021-03-14 10:00] VITALS: BP 115/67; PULSE 73; RESP 16; TEMP 36.4; O2SAT 97
--- NOTE | 2021-03-14 10:36 | PM.DS ---
DS: Admitting Diagnosis Discharge Date 03/14/2021 Admitting Diagnosis Diverticulitis with perforation DS: Discharge Diagnosis Discharge Diagnosis (1) Diverticulitis of colon with perforation: Code(s): K57.20 - Diverticulitis of large intestine with perforation and abscess without bleeding Status: Acute Assessment and Plan: CT showed perforated diverticulitis of the transverse colon with possible intramural abscess. She was seen in consultation by General surgery. She was started on IV Zosyn. She had improvement in symptoms with antibiotics, analgesics, IV fluid rehydration, and bowel rest. Remained afebrile and with normal white blood cell count. She was able to advance to a low-fiber diet. Pain improved significantly and she was having loose bowel movements. She will continue p.o. Augmentin for 10 days and will follow-up with General surgery in 2 weeks. She will then need to be referred to GI for colonoscopy. (2) Hyperlipidemia: Code(s): E78.5 - Hyperlipidemia, unspecified Status: Chronic Assessment and Plan: Continue statin (3) Microscopic hematuria: Code(s): R31.29 - Other microscopic hematuria Status: Acute Assessment and Plan: A longstanding issue for the patient for which she was extensively worked up in the past. No significant findings on CT. (4) Normocytic anemia: Code(s): D64.9 - Anemia, unspecified Status: Acute Assessment and Plan: Slight decline in hemoglobin and hematocrit from baseline, most likely related to dilutional effect from IV fluids. Improvement in hemoglobin and hematocrit on discharge. Anticipate normalization of H&H DS: Summary Hospital Course Hospital Course: Date of admission: 03/12/2021 Date of discharge: 03/14/2021 Ofelia Costello is a 60-year-old female with a history of breast cancer s/p mastectomy, hyperlipidemia, asthma, and GERD who presented to the emergency department on 03/12/2021 with complaints of right-sided abdominal pain ongoing for 3-4 days with low-grade fever and constipation. On presentation to the emergency department, her vital signs were stable, she was afebrile, CBC and BMP unremarkable, CT abdomen/pelvis with perforated diverticulitis the transverse colon with possible intramural abscess. She was admitted to the hospitalist service for further evaluation and management was seen in consultation by General surgery. Please see above for further details. She had symptomatic improvement with bowel rest and antibiotics. Her diet was able to be advanced. Her pain resolved. Given her overall improvement, she was determined to no longer require inpatient care and was felt to be stable for discharge. General surgery service in agreement with plans for discharge. She will continue p.o. Augmentin to complete 10 days of antibiotic therapy outpatient and will need to follow-up in 2 weeks in their office. Given her overall improvement, she was determined to no longer require inpatient care and was felt to be stable for discharge. We discussed worrisome signs and symptoms for which to return and she was educated on her medications. She was discharged in hemodynamically stable condition on 03/14/2021. Status at Discharge Functional status at discharge: independent ambulation Overall status at discharge: patient is progressing back to baseline Time Spent with Patient Time attestation: Total time spent providing and/or coordinating discharge services: 45 minutes Exam Narrative: Ms. Costello is a well-nourished, well-appearing 60-year-old female who is sitting in a chair by the bedside. She appears comfortable and is in NARD. Neuro: awake, alert and oriented x4, speech clear, no focal neuro deficits noted HEENMT: normocephalic, atraumatic, EOMI, sclerae anicteric, moist oral mucosa, wearing eyeglasses Neck: supple, no lymphadenopathy Respiratory: clear to auscultation bilaterally, nonlabored
== END 2021-03-14 15:11 | disposition home or self-care (01) | DRG 392 ==
LOC: ANHED 09:02 → ANH2MED 14:07
PROVIDERS: Emergency Medicine; Admitting Provider Internal Medicine; Emergency Provider Emergency Medicine; PCP Student in an Organized Health Care Education/Training Program; Visit Provider Physician Assistant
DX: K57.20 Diverticulitis of large intestine with perforation and abscess without bleeding (principal); D64.9 Anemia, unspecified; R31.29 Other microscopic hematuria; E78.5 Hyperlipidemia, unspecified; K21.9 Gastro-esophageal reflux disease without esophagitis; Z85.3 Personal history of malignant neoplasm of breast; Z86.010 Personal history of colon polyps
CPT/HCPCS: 36415; 74177; 80048; 80053; 81001; 83605; 83690; 83735; 85025; 85027; 86140; 96361; 96365; 96375; 99285; J2270; J2405; J2543; J7030; J7120; Q9967

== ENCOUNTER 2021-06-12 00:15 | Day surgery (SDC) | payer OTHER, SELFPAY ==
[2021-04-28 14:09] VITALS: BMI 24.1
--- NOTE | 2021-06-11 10:00 | P.PNAN_ITS ---
Anes - Initial Pre Proc Eval Procedure: Operation Date: 06/12/21 10:00 Proposed Procedures p Colonoscopy - Joseluis Linton MD Date/Time: 06/11/21 10:00 Surgeon: Joseluis Linton MD Pre Op Diagnosis: hx of colon polyps, diverticulitis Patient Data Age: 60 Gender: F Height: 1.7 m Weight: 70 kg Allergies Allergy/AdvReac Type Severity Reaction Status Date / Time No Known Allergies Allergy Verified 06/12/21 08:55 Home Medications Medication Instructions Recorded Confirmed Type Daily Probiotic 1 cap PO DAILY 03/12/21 06/12/21 History atorvastatin 10 mg PO DAILY 03/12/21 06/12/21 History ibandronate 150 mg PO MONTHLY 03/12/21 06/12/21 History Patient hx anesthesia problems: none Family hx anesthesia problems: none Results Review: All pre-operative results and documents have been reviewed as part of the pre-operative evaluation. [facility] Past Medical History Medical History Asthma Breast cancer GERD (gastroesophageal reflux disease) GI bleed Hypercholesterolemia Hyperlipidemia Microscopic hematuria Dating back many years for which she has been extensively evaluated with no significant obvious etiology. Osteopenia Rectal polyp Surgical History Surgical History H/O mastectomy Left breast History of colonoscopy with polypectomy History of left breast biopsy Breast duct excision. Family History Family History Sibling Diverticulitis Father Family history of emphysema Social History Social History Social History: Surrogate decision maker: Dani Costello, spouse. Code status: Full code. Smoking status: Never smoker Alcohol intake: never Substance use: never Substance use type: does not use Living arrangements: with family Additional living arrangements comments: The patient lives with her and son in [place]. She is originally from [facility]. Gender identity (if verbalized by the patient): Female Spiritual care concerns: No Anes - Eval Final PreProcedure Day of Procedure 06/11/21 10:00 Patient weight: normal Heart: regular rate and rhythm Lungs: clear to auscultation and normal air movement Airway: Mallampati scale class II Neurological: alert and oriented Last oral intake: >/= 8 hours ASA classification: II Emergent: no Anesthetic plan: proceed Anesthesia type and monitoring: general GIVS and standard monitoring Results Review: All pre-operative results and documents have been reviewed as part of the pre-operative evaluation. Informed Consent: The patient's anesthetic plan and its attendant risks and benefits were discussed with the patient/family/POA. Questions were solicited and answers provided to the satisfaction of the patient/family/POA.
[2021-06-12 08:52] VITALS: BP 135/59; PULSE 84; RESP 16; TEMP 36.7; O2SAT 99; BMI 24.2
--- NOTE | 2021-06-12 09:02 | WPDGICN ---
Assessment and Plan Assessment and plan (1) History of colon polyps: Code(s): Z86.010 - Personal history of colonic polyps Status: Acute Assessment and Plan: Patient has a history of colon polyps most recently 2018. Plan is for surveillance colonoscopy now and intervals in the future. (2) Diverticulitis of colon with perforation: Code(s): K57.20 - Diverticulitis of large intestine with perforation and abscess without bleeding Status: Acute Assessment and Plan: Patient had episode of diverticulitis CT scan suggested small perforation. Plan is for surveillance colonoscopy now that she has begun to improve. High-fiber diet also advised at this time. GI Consult Note Consult date/time: 06/12/21 09:02 HPI: Ofelia Costello is a 60 year old female Presents for colonoscopy. Patient has a prior history of colon polyps. Most recently 2017. In March had an episode of diverticulitis. She presents today for follow-up colonoscopy. Patient reports that her bowel habits have returned to normal. She occasionally will get mild right-sided abdominal discomfort. She denies any bleeding. Her weight has remained stable. Her family history is noncontributory. Review of Systems Review of Systems: All systems reviewed & are unremarkable except as noted in HPI and below PMFSH Past Medical History Medical History Asthma Breast cancer GERD (gastroesophageal reflux disease) GI bleed Hypercholesterolemia Hyperlipidemia Microscopic hematuria Dating back many years for which she has been extensively evaluated with no significant obvious etiology. Osteopenia Rectal polyp Surgical History Surgical History H/O mastectomy Left breast History of colonoscopy with polypectomy History of left breast biopsy Breast duct excision. Family History Family History Sibling Diverticulitis Father Family history of emphysema Social History Social History Social History: Surrogate decision maker: Dani Costello, spouse. Code status: Full code. Smoking status: Never smoker Alcohol intake: never Substance use: never Substance use type: does not use Living arrangements: with family Additional living arrangements comments: The patient lives with her and son in [place]. She is originally from [facility]. Gender identity (if verbalized by the patient): Female Spiritual care concerns: No Meds Home Medications and Allergies Home Medications Medication Instructions Recorded Confirmed Type Daily Probiotic 1 cap PO DAILY 03/12/21 06/12/21 History atorvastatin 10 mg PO DAILY 03/12/21 06/12/21 History ibandronate 150 mg PO MONTHLY 03/12/21 06/12/21 History Allergies Allergy/AdvReac Type Severity Reaction Status Date / Time No Known Allergies Allergy Verified 06/12/21 08:55 Exam Narrative: Physical exam reveals patient be alert. Vital signs stable. HEENT exam is unremarkable. Patient is anicteric. Lungs are clear to auscultation and percussion. Heart is without murmur or extra sounds. Abdomen bowel sounds are present soft nontender with no organomegaly. Digital external rectal exam is normal.
[2021-06-12] MEDS: LACTATED RINGERS 1,000 ML 150 ML IV CONT (09:15)
[2021-06-12 09:51] VITALS: BP 84/49; PULSE 63; RESP 18; O2SAT 96
[2021-06-12 10:01] VITALS: BP 87/49; PULSE 60; RESP 21; O2SAT 98
[2021-06-12 10:11] VITALS: BP 114/70; PULSE 69; RESP 17; O2SAT 98
== END 2021-06-12 10:22 | disposition home or self-care (01) ==
PROVIDERS: PCP Student in an Organized Health Care Education/Training Program; Visit Provider Internal Medicine Gastroenterology
PROC: 0DJD8ZZ Inspection of Lower Intestinal Tract, Via Natural or Artificial Opening Endoscopic (ICD-10-PCS; CPT 45378; principal; 2021-06-12 10:00)
DX: Z12.11 Encounter for screening for malignant neoplasm of colon (principal); K64.8 Other hemorrhoids; K57.30 Diverticulosis of large intestine without perforation or abscess without bleeding; Z86.010 Personal history of colon polyps; Z87.19 Personal history of other diseases of the digestive system; E78.5 Hyperlipidemia, unspecified; K21.9 Gastro-esophageal reflux disease without esophagitis; J45.909 Unspecified asthma, uncomplicated; Z85.3 Personal history of malignant neoplasm of breast; Z90.12 Acquired absence of left breast and nipple
CPT/HCPCS: 45378; J2704; J7120

== ENCOUNTER 2021-08-21 10:31 | Outpatient (CLI) | payer OTHER, SELFPAY ==
[2021-08-21 11:09] LABS: Basophils Percent Auto 0.8 % (0.2-1.2); Eosinophils Absolute Auto 0.1 K/mm3 (0-0.3); Hematocrit 38.3 % (37.0-47.0); Hemoglobin 12.6 g/dL (12.0-15.0); Immature Granulocyte Absolute 0.01 K/mm3 (0.00-0.031); Immature Granulocyte Percent A 0.2 % (0-0.5); Lymphocytes Absolute Auto 2.33 K/mm3 (0.9-3.2); Lymphocytes Percent Auto 46.3 % (18.3-44.2); Mean Corpuscular HGB Conc 32.9 g/dl (32-36); Mean Corpuscular Hemoglobin 30.7 pg (26-34); Mean Corpuscular Volume 93.2 fl (80-100); Monocytes Absolute Auto 0.3 K/mm3 (0.1-0.6); Monocytes Percent Auto 6.2 % (2.6-8.5); Neutrophils Absolute Auto 2.2 K/mm3 (1.3-6.7); Neutrophils Percent Auto 44.5 % (45.5-73.1); Platelet Count Result 252 k/mm3 (150-375); Red Blood Count 4.11 M/mm3 (4.2-5.4); Red Cell Distribution Width 12.4 % (11.5-14.5)
[2021-08-21 11:12] LABS: Alanine Aminotransferase 23 U/L (4-35); Albumin Level 4.7 g/dL (3.5-5.1); Alkaline Phosphatase 56 U/L (38-126); Anion Gap 7 mmol/L (8-16); Aspartate Amino Transferase 37 U/L (14-36); Bilirubin,Total 0.5 mg/dL (0.2-1.3); Blood Urea Nitrogen 20 mg/dL (7-17); Calcium 8.5 mg/dL (8.4-10.2); Carbon Dioxide 27 mmol/L (22-30); Chloride 105 mmol/L (98-107); Cholesterol 198 mg/dL (0-200); Creatine Kinase 109 U/L (30-135); Estimated Glomerular Filt Rate > 60; Glucose 108 mg/dL (65-110); HDL Direct 68 mg/dL; Potassium 4.1 mmol/L (3.4-5.0); Sodium 139 mmol/L (137-145); Triglycerides 74 mg/dL (<150)
[2021-08-21 11:16] LABS: Hemoglobin A1C 5.7 % (<5.7)
[2021-08-21 11:24] LABS: LDL Cholesterol Direct 84 mg/dL
[2021-08-21 11:36] LABS: Vitamin D 25 Hydroxy 86.7 ng/mL
== END 2021-08-21 10:32 | disposition home or self-care (01) ==
LOC: ANHLAB 10:35
PROVIDERS: PCP Student in an Organized Health Care Education/Training Program; Visit Provider Student in an Organized Health Care Education/Training Program
DX: Z00.00 Encounter for general adult medical examination without abnormal findings (principal); Z13.220 Encounter for screening for lipoid disorders; E55.9 Vitamin D deficiency, unspecified; Z13.29 Encounter for screening for other suspected endocrine disorder; Z13.228 Encounter for screening for other metabolic disorders; Z13.0 Encounter for screening for diseases of the blood and blood-forming organs and certain disorders involving the immune mechanism; R73.9 Hyperglycemia, unspecified
CPT/HCPCS: 36415; 80053; 80061; 82306; 82550; 83036; 84443; 85025

== ENCOUNTER 2022-02-15 09:46 | Outpatient (CLI) | payer OTHER, SELFPAY ==
--- NOTE | ~2022-02-15 | MM_ITS ---
EXAMINATION: MM screening keeley BI w alexis HISTORY: Screening TECHNIQUE: Craniocaudal and mediolateral oblique 3-D tomosynthesis images were obtained and synthetic 2-D images were generated. CAD analysis was submitted and interpreted. COMPARISON: Comparison to multiple prior studies sequentially, with oldest reviewed study dated 12/21. BREAST PARENCHYMAL COMPOSITION: There are scattered areas of fibroglandular density. FINDINGS: There is no evidence of suspicious mass, calcification, or architectural distortion to sugg est malignancy in either breast. There has been no suspicious interval change. IMPRESSION: 1. No mammographic evidence of malignancy. 2. Recommend routine screening mammography in one year. BI-RADS Category 1: Negative Reviewed, dictated and finalized at location A.
== END 2022-02-15 09:47 | disposition home or self-care (01) ==
LOC: ANHIMG 09:48
PROVIDERS: PCP Student in an Organized Health Care Education/Training Program; Visit Provider Student in an Organized Health Care Education/Training Program
DX: Z12.31 Encounter for screening mammogram for malignant neoplasm of breast (principal)
CPT/HCPCS: 77063; 77067

== ENCOUNTER 2022-06-26 10:51 | Emergency (ER) | payer OTHER, SELFPAY ==
--- NOTE | ~2022-06-26 | US_ITS ---
EXAMINATION: US venous doppler LE RT DATE: 06/26/2022 16:14 INDICATION: pain . TECHNIQUE: Grayscale images without and with compression and Doppler images of the right lower extrem ity veins were obtained. COMPARISON: None FINDINGS: The right common femoral vein, profunda (deep) femoral vein, femoral vein, popliteal vein, peroneal v ein, posterior tibial veins, gastrocnemius vein, and greater saphenous vein are patent. IMPRESSION: 1. Patent right lower extremity veins. No evidence of deep venous thrombosis. Reviewed, dictated and finalized at location K. [facility]EN[facility]
[2022-06-26 10:56] VITALS: BP 134/74; PULSE 80; RESP 20; TEMP 36.4; O2SAT 99
[2022-06-26 15:22] VITALS: BP 128/84; PULSE 65; RESP 18; O2SAT 96
--- NOTE | 2022-06-26 17:10 | ED.GENADULT ---
HPI - General Adult General Chief complaint: Extremity Problem,Nontraumatic Stated complaint: Right Leg red warm, surgery in may on leg Time Seen by Provider: 06/26/22 14:41 History of Present Illness HPI narrative: Patient is a 61-year-old female who presents ER for further evaluation of her right leg. She had a procedure performed on a vein in her right leg 1 month ago. Since then she has had some nodules noted in her leg. She was seen at an outside ER and diagnosed with superficial phlebitis. Unsure if she had an ultrasound. She would like a second opinion. No chest pain or chest pressure or difficulty breathing. No lower extremity swelling. Related Data Home Medications Medication Instructions Recorded Confirmed Lactobacillus 1 cap PO DAILY 03/12/21 06/12/21 acidophilus-Bifidobac.animalis 2.5 billion cell capsule (Daily Probiotic) atorvastatin 10 mg tablet 10 mg PO DAILY 03/12/21 06/12/21 ibandronate 150 mg tablet 150 mg PO MONTHLY 03/12/21 06/12/21 Allergies Allergy/AdvReac Type Severity Reaction Status Date / Time No Known Allergies Allergy Verified 06/26/22 10:53 Review of Systems Review of Systems: All systems reviewed & are unremarkable except as noted in HPI and below Constitutional: Constitutional: Denies chills, Denies fatigue and Denies fever(s) ENT: Denies nasal congestion and Denies sore throat Cardiovascular: Cardiovascular: Denies chest pain, Denies rapid heart rate and Denies radiating jaw, neck or arm pain Respiratory: Respiratory: Denies cough and Denies dyspnea Musculoskeletal: Musculoskeletal: Denies arthralgias, Denies joint swelling and Denies muscle cramps Integumentary/Breasts: Skin/Breast: Denies erythema and Denies rash Comments: Bruising right thigh PMFSH Past Medical History Medical History Asthma Breast cancer GERD (gastroesophageal reflux disease) GI bleed Hypercholesterolemia Hyperlipidemia Microscopic hematuria Dating back many years for which she has been extensively evaluated with no significant obvious etiology. Osteopenia Rectal polyp Surgical History Surgical History H/O mastectomy Left breast History of colonoscopy with polypectomy History of left breast biopsy Breast duct excision. Family History Family History Sibling Diverticulitis Father Family history of emphysema Social History Social History Social History: Surrogate decision maker: Dani Costello, spouse. Code status: Full code. Smoking status: Former smoker Alcohol intake: never Substance use: never Substance use type: does not use Living arrangements: with family Additional living arrangements comments: The patient lives with her and son in [place]. She is originally from [facility]. Occupation/Education: unemployed Gender identity (if verbalized by the patient): Female Spiritual care concerns: No Exam Narrative: GENERAL: Well-appearing, well-nourished, and in no acute distress. HEAD: Normocephalic, atraumatic. CHEST: Clear to auscultation. No respiratory distress. HEART: Regular rate and rhythm. Normal peripheral pulses. ABDOMEN: Soft, nontender, nondistended. EXTREMITIES: Normal range of motion. No edema. Phlebitis of the strep vein in the right lower extremity near the knee and in the proximal thigh with bruising along the vein that was treated. No redness. No tenderness. SKIN: Warm, dry, no rash. NEURO: No focal deficits. Alert and oriented x3. PSYCH: Normal mood and affect. Course Course Emergency Course: Patient aware of diagnosis and treatment plan discharge home. No DVT. Vital Signs Vital signs: Vital Signs Temperature 97.6 F 06/26/22 10:56 Pulse Rate 80 06/26/22 10:56 Respiratory
== END 2022-06-26 17:37 | disposition home or self-care (01) ==
PROVIDERS: Emergency Provider Emergency Medicine; PCP Student in an Organized Health Care Education/Training Program
DX: T81.72XA Complication of vein following a procedure, not elsewhere classified, initial encounter (principal); I80.01 Phlebitis and thrombophlebitis of superficial vessels of right lower extremity; J45.909 Unspecified asthma, uncomplicated; E78.00 Pure hypercholesterolemia, unspecified; M85.80 Other specified disorders of bone density and structure, unspecified site; K21.9 Gastro-esophageal reflux disease without esophagitis; Z85.3 Personal history of malignant neoplasm of breast; Z87.19 Personal history of other diseases of the digestive system; Z87.891 Personal history of nicotine dependence
CPT/HCPCS: 93971; 99284

== ENCOUNTER 2022-07-20 15:39 | Emergency (ER) | payer OTHER, SELFPAY ==
[2022-07-20 16:12] VITALS: BP 132/67; PULSE 70; RESP 18; TEMP 36.8; O2SAT 98
[2022-07-20 16:28] LABS: Basophils Percent Auto 0.6 % (0.2-1.2); Eosinophils Absolute Auto 0.1 K/mm3 (0-0.3); Eosinophils Percent Auto 1.6 % (0-4.4); Hematocrit 38.5 % (37.0-47.0); Hemoglobin 12.6 g/dL (12.0-15.0); Immature Granulocyte Absolute 0.02 K/mm3 (0.00-0.031); Immature Granulocyte Percent A 0.3 % (0-0.5); Lymphocytes Absolute Auto 2.31 K/mm3 (0.9-3.2); Lymphocytes Percent Auto 34.4 % (18.3-44.2); Mean Corpuscular HGB Conc 32.7 g/dl (32-36); Mean Corpuscular Hemoglobin 30.7 pg (26-34); Mean Corpuscular Volume 93.7 fl (80-100); Mean Platelet Volume 9.8 fl (7.4-10.4); Monocytes Absolute Auto 0.4 K/mm3 (0.1-0.6); Monocytes Percent Auto 6.5 % (2.6-8.5); Neutrophils Absolute Auto 3.8 K/mm3 (1.3-6.7); Neutrophils Percent Auto 56.6 % (45.5-73.1); Platelet Count Result 238 k/mm3 (150-375); Red Blood Count 4.11 M/mm3 (4.2-5.4); Red Cell Distribution Width 12.3 % (11.5-14.5); White Blood Count 6.7 K/mm3 (4.5-10.0)
[2022-07-20 16:41] LABS: Anion Gap 5 mmol/L (8-16); Blood Urea Nitrogen 19 mg/dL (7-17); Carbon Dioxide 29 mmol/L (22-30); Chloride 103 mmol/L (98-107); Estimated CRCL calculation 81 ml/min; Estimated Glomerular Filt Rate > 60; Glucose 97 mg/dL (65-110); Potassium 4.5 mmol/L (3.4-5.0); Sodium 137 mmol/L (137-145)
--- NOTE | 2022-07-20 18:36 | PC.NURSE ---
Active ROM of affected joint noted. Pt reports green drainage 1 weeks ago. And throbbing pain started worsening over past 3 days. PT denies fever at this time.
[2022-07-20 19:03] VITALS: BP 131/81; PULSE 65; RESP 16; TEMP 36.2; O2SAT 98
--- NOTE | 2022-07-20 19:10 | ED.EXTPRO ---
HPI - Extremity Problem General Chief complaint: Extremity Problem,Nontraumatic <Neri Prajapati PA-C - Last Filed: 07/20/22 22:45> Stated complaint: Cellulits <JAVON Garay Last Filed: 07/20/22 22:45> Time Seen by Provider: 07/20/22 18:27 <Neri Prajapati PA-C - Last Filed: 07/20/22 22:45> Source: patient <JAVON Garay Last Filed: 07/20/22 22:45> Mode of arrival: ambulatory <JAVON Garay Last Filed: 07/20/22 22:45> Limitations: no limitations <JAVON Garay Last Filed: 07/20/22 22:45> History of Present Illness HPI Narrative: This is a 61-year-old female with PMH of HLD, diverticulitis presents to the ED with chief complaint of her right great toe redness and swelling x3 days. Reports an initial lesion 2 weeks ago that she popped and noticed green fluid. She thought the problem had resolved but in the last 3 to 4 days there has been increased redness and swelling in the area. Also reports pain. Denies fevers, chills, weakness, headache, LOC. Denies any streaking up the leg. Reports she has been able to walk. <Neri Prajapati PA-C - Last Filed: 07/20/22 22:45> Related Data Home medications: Home Medications Medication Instructions Recorded Confirmed Lactobacillus 1 cap PO DAILY 03/12/21 06/12/21 acidophilus-Bifidobac.animalis 2.5 billion cell capsule (Daily Probiotic) atorvastatin 10 mg tablet 10 mg PO DAILY 03/12/21 06/12/21 ibandronate 150 mg tablet 150 mg PO MONTHLY 03/12/21 06/12/21 <JAVON Garay Last Filed: 07/20/22 22:45> Allergies/Adverse reactions: Allergies Allergy/AdvReac Type Severity Reaction Status Date / Time No Known Allergies Allergy Verified 07/20/22 18:33 <JAVON Garay Last Filed: 07/20/22 22:45> Review of Systems Review of Systems: CONSTITUTIONAL: Denies fever, chills, or sweats. EYES: Denies visual changes, redness, or discharge. ENT: Denies rhinorrhea, congestion, sore throat, or otalgia. CARDIOVASCULAR: Denies chest pain, palpitations, or edema. RESPIRATORY: Denies cough or dyspnea. GASTROINTESTINAL: Denies abdominal pain, nausea, vomiting, or diarrhea. GENITOURINARY: Denies dysuria or hematuria. SKIN: Endorses redness and pain of the right great toe. Denies rash or itching. MUSCULOSKELETAL: Denies back pain, joint pain, or myalgia. NEUROLOGIC: Denies headache, numbness, dizziness, or weakness. PSYCHIATRIC: Denies anxiety or depression. <Neri Prajapati PA-C - Last Filed: 07/20/22 22:45> [facility] Past Medical History Medical History: Medical History Asthma Breast cancer GERD (gastroesophageal reflux disease) GI bleed Hypercholesterolemia Hyperlipidemia Microscopic hematuria Dating back many years for which she has been extensively evaluated with no significant obvious etiology. Osteopenia Rectal polyp <Neri Prajapati PA-C - Last Filed: 07/20/22 22:45> Surgical History Surgical History: Surgical History H/O mastectomy Left breast History of colonoscopy with polypectomy History of left breast biopsy Breast duct excision. <Neri Prajapati PA-C - Last Filed: 07/20/22 22:45> Family History Family History: Family History Sibling Diverticulitis Father Family history of emphysema <Neri Prajapati PA-C - Last Filed: 07/20/22 22:45> Social History Social History: Social History Social History: Surrogate decision maker: Dani Costello, spouse. Code status: Full code. Smoking status: Former smoker Alcohol intake: never Substance use: never Substance use type: does not use Living arrangements: with family Additional living arrangements comments: The patient lives with her and son in [place].
[2022-07-20] MEDS: CEPHALEXIN 500 MG CAPSULE PO (19:20)
--- NOTE | 2022-07-20 19:20 | PC.NURSE ---
Report given to EVE Cesar
== END 2022-07-20 19:27 | disposition home or self-care (01) ==
PROVIDERS: Emergency Medicine; Emergency Provider Physician Assistant; PCP Student in an Organized Health Care Education/Training Program
DX: L03.031 Cellulitis of right toe (principal); E78.00 Pure hypercholesterolemia, unspecified; M85.80 Other specified disorders of bone density and structure, unspecified site; Z87.891 Personal history of nicotine dependence; Z85.3 Personal history of malignant neoplasm of breast
CPT/HCPCS: 36415; 80048; 85025; 99283; A9270

== ENCOUNTER 2022-10-23 08:33 | Outpatient (CLI) | payer OTHER, SELFPAY ==
--- NOTE | ~2022-10-23 | DEXA_ITS ---
Bone Density Report Name: MACARIO PURCELL Age: 62 Sex: Female Ethnicity: Date of : 1960 Indication: osteopenia; postmenopausal Referring Provider: NENITA, PHIL Study: Bone densitometry was performed. Exam Date: October 23, 2022 Accession number: [id number] Bone Density: Region BMD T-score Z-score Classification AP Spine(L1-L4) 0.840 -1.9 -0.3 Osteopenia Femoral Neck (Left) 0.642 -1.9 -0.6 Osteopenia Total Hip (Left) 0.791 -1.2 -0.3 Osteopenia Femoral Neck (Right) 0.676 -1.6 -0.4 Osteopenia Total Hip (Right) 0.811 -1.1 -0.1 Osteopenia Total Hip Mean 0.801 -1.2 -0.2 Osteopenia World Health Organization criteria for BMD impression classify patients as: Normal (T-score at or above -1.0), Osteopenia (T-score between -1.0 and -2.5), or Osteoporosis (T-score at or below -2.5). 10-year Fracture Risk(1): Major Osteoporotic Fracture 5.3% Hip Fracture 0.6% Reported Risk Factors: [place] (), Neck BMD=0.642, BMI=24.4 (1) FRAX(R) Version 3.08. Fracture probability calculated for an untreated patient. Fracture probability may be lower if the patient has received treatment. Previous Exams: Region Exam Age BMD T-score BMD Change BMD Change Date g/cm2 vs Baseline vs Previous AP Spine (L1-L4) 10/23/2022 62 0.840 -1.9 -0.138 (-14.1% 0.007 (0.8%) 08/13/2020 60 0.833 -1.9 -0.145 (-14.8% -0.050 (-5.7%) 06/23/2016 55 0.883 -1.5 -0.095 (-9.7%) -0.056 (-6.0%) 12/06/2013 53 0.940 -1.0 -0.038 (-3.9%) -0.038 (-3.9%) 09/10/2011 51 0.978 -0.6 Total Hip(Left) 10/23/2022 62 0.791 -1.2 -0.061 (-7.2%) 0.014 (1.8%) 08/13/2020 60 0.777 -1.4 -0.075 (-8.8%) -0.007 (-0.9%) 06/23/2016 55 0.784 -1.3 -0.068 (-8.0%) -0.020 (-2.5%) 12/06/2013 53 0.804 -1.1 -0.048 (-5.6%) -0.048 (-5.6%) 09/10/2011 51 0.852 -0.7 Total Hip(Right) 10/23/2022 62 0.811 -1.1 -0.068 (-7.7%) 0.013 (1.6%) 08/13/2020 60 0.798 -1.2 -0.081 (-9.2%) -0.038 (-4.5%) 06/23/2016 55 0.837 -0.9 -0.043 (-4.9%) -0.017 (-2.0%) 12/06/2013 53 0.853 -0.7 -0.026 (-2.9%) -0.026 (-2.9%) 09/10/2011 51 0.879 -0.5 *Denotes significance at 95% confidence level, LSC for AP Spine = 0.022 g/cm2, LSC for Total Hip = 0.027 g/cm2 # Denotes dissimilar scan types or analysis methods Clinical Information Provided by Patient: Has used the following medications: Vitamin D, Calcium Patient maximum height was 67 Menopause Age: 46 Onset of menses at age
[2022-10-23 10:10] LABS: Basophils Absolute Auto 0.1 K/mm3 (0.0-0.1); Basophils Percent Auto 1.1 % (0.2-1.2); Eosinophils Absolute Auto 0.1 K/mm3 (0-0.3); Eosinophils Percent Auto 1.7 % (0-4.4); Hematocrit 40.4 % (37.0-47.0); Hemoglobin 13.1 g/dL (12.0-15.0); Immature Granulocyte Absolute 0.01 K/mm3 (0.00-0.031); Immature Granulocyte Percent A 0.2 % (0-0.5); Lymphocytes Absolute Auto 2.02 K/mm3 (0.9-3.2); Lymphocytes Percent Auto 43.4 % (18.3-44.2); Mean Corpuscular HGB Conc 32.4 g/dl (32-36); Mean Corpuscular Hemoglobin 30.5 pg (26-34); Monocytes Absolute Auto 0.3 K/mm3 (0.1-0.6); Monocytes Percent Auto 5.6 % (2.6-8.5); Neutrophils Absolute Auto 2.2 K/mm3 (1.3-6.7); Platelet Count Result 257 k/mm3 (150-375); Red Cell Distribution Width 12.6 % (11.5-14.5); White Blood Count 4.7 K/mm3 (4.5-10.0)
[2022-10-23 10:25] LABS: Alanine Aminotransferase 18 U/L (6-35); Albumin Level 4.5 g/dL (3.5-5.1); Alkaline Phosphatase 60 U/L (38-126); Anion Gap 8 mmol/L (8-16); Aspartate Amino Transferase 28 U/L (14-36); Bilirubin,Total 0.4 mg/dL (0.2-1.3); Blood Urea Nitrogen 16 mg/dL (7-17); Calcium 9.1 mg/dL (8.4-10.2); Carbon Dioxide 28 mmol/L (22-30); Chloride 102 mmol/L (98-107); Cholesterol 226 mg/dL (0-200); Estimated Glomerular Filt Rate > 60; Glucose 105 mg/dL (65-110); HDL Direct 62 mg/dL; Sodium 138 mmol/L (137-145); Triglycerides 134 mg/dL (<150)
[2022-10-23 10:37] LABS: LDL Cholesterol Direct 121 mg/dL
[2022-10-23 11:57] LABS: Hemoglobin A1C 5.9 % (<5.7)
[2022-10-23 14:29] LABS: Vitamin D 25 Hydroxy 60.8 ng/mL
== END 2022-10-23 08:34 | disposition home or self-care (01) ==
PROVIDERS: PCP Student in an Organized Health Care Education/Training Program; Visit Provider Nurse Practitioner
DX: Z00.00 Encounter for general adult medical examination without abnormal findings (principal); M85.88 Other specified disorders of bone density and structure, other site; Z13.220 Encounter for screening for lipoid disorders; Z13.29 Encounter for screening for other suspected endocrine disorder; Z13.228 Encounter for screening for other metabolic disorders; Z13.1 Encounter for screening for diabetes mellitus; Z13.0 Encounter for screening for diseases of the blood and blood-forming organs and certain disorders involving the immune mechanism
CPT/HCPCS: 36415; 77080; 80053; 80061; 82306; 83036; 84443; 85025

== ENCOUNTER 2022-12-06 11:01 | Emergency (ER) | payer OTHER, SELFPAY ==
[2022-12-06] VITALS (10 sets, daily range): BP systolic 117–131; BP diastolic 68–76; PULSE 73; RESP 16–18; TEMP 36.4; O2SAT 96–100
--- NOTE | ~2022-12-06 | CT_ITS ---
EXAMINATION: CT abdomen pelvis w con DATE: 12/06/2022 12:29 INDICATION: Right abdominal pain. TECHNIQUE: Computed tomography (CT) of the abdomen and pelvis was performed with 100 mL Omnipaque 350 intravenous contrast. Automated exposure control and iterative reconstruction technique were employe d. The dose-length product was 346.84 mGy-cm. COMPARISON: CT abdomen and pelvis 03/12/2021 FINDINGS: The visualized portions of the lung bases demonstrate mild atelectasis. No pleural effusion . The heart size is normal. No pericardial effusion. The liver, gallbladder, spleen, pancreas, adrena l glands, and kidneys are normal. There are no dilated loops of bowel. There are scattered diverticul a in the colon. There is fat stranding around a diverticulum of ascending colon, consistent with dive rticulitis. The appendix is normal. There is an umbilical hernia containing fat. There are no patholo gically enlarged lymph nodes. There is no free intraperitoneal fluid. There is mild thoracolumbar spo ndylosis. IMPRESSION: 1. Acute diverticulitis of ascending colon. No perforation or abscess. Reviewed, dictated and finalized at location A.
[2022-12-06 11:39] LABS: Appearance Urine Clear (Clear); Bacteria Urine None Seen /hpf; Bilirubin Urine Negative (Negative); Blood Urine 3+ (Negative); Color Urine Yellow (Yellow); Glucose Urine UA Negative (Negative); Ketones Urine Negative (Negative); Leukocyte Esterase Ur 1+ LEU/UL (Negative); Need Manual Microscopic Reviewed; Nitrate Urine Negative (Negative); Non Pathogenic Casts 0-2; Protein Urine Negative (Negative); RBC Urine 51-100 /hpf (0-2); Specific Grav Ur 1.017 (1.001-1.035); Squamous Epithelial Cell Urine Occasional /hpf (Few); WBC Urine 0-5 /hpf; pH Urine 6.5 (5.0-9.0)
[2022-12-06 11:40] LABS: Add Urine Microscopic? YES
[2022-12-06 11:44] LABS: Basophils Percent Auto 0.5 % (0.2-1.2); Eosinophils Absolute Auto 0.1 K/mm3 (0-0.3); Eosinophils Percent Auto 0.9 % (0-4.4); Hematocrit 35.9 % (37.0-47.0); Hemoglobin 11.8 g/dL (12.0-15.0); Immature Granulocyte Absolute 0.01 K/mm3 (0.00-0.031); Immature Granulocyte Percent A 0.1 % (0-0.5); Lymphocytes Percent Auto 18.6 % (18.3-44.2); Mean Corpuscular HGB Conc 32.9 g/dl (32-36); Mean Corpuscular Hemoglobin 30.9 pg (26-34); Monocytes Absolute Auto 0.6 K/mm3 (0.1-0.6); Monocytes Percent Auto 8.3 % (2.6-8.5); Neutrophils Absolute Auto 5.4 K/mm3 (1.3-6.7); Neutrophils Percent Auto 71.6 % (45.5-73.1); Platelet Count Result 208 k/mm3 (150-375); Red Blood Count 3.82 M/mm3 (4.2-5.4); Red Cell Distribution Width 12.9 % (11.5-14.5); White Blood Count 7.5 K/mm3 (4.5-10.0)
[2022-12-06 11:56] LABS: Alanine Aminotransferase 19 U/L (6-35); Albumin Level 4.2 g/dL (3.5-5.1); Alkaline Phosphatase 51 U/L (38-126); Anion Gap 5 mmol/L (8-16); Aspartate Amino Transferase 31 U/L (14-36); Bilirubin,Total 0.6 mg/dL (0.2-1.3); Blood Urea Nitrogen 12 mg/dL (7-17); Carbon Dioxide 29 mmol/L (22-30); Chloride 103 mmol/L (98-107); Estimated CRCL calculation 80 ml/min; Estimated Glomerular Filt Rate > 60; Glucose 114 mg/dL (65-110); Lipase 110 U/L (23-300); Potassium 3.7 mmol/L (3.4-5.0); Sodium 137 mmol/L (137-145)
[2022-12-06] MEDS: SODIUM CHLORIDE 0.9% IV 1,000 ML 999 ML IV CONT (12:13)
[2022-12-06] MEDS: MORPHINE SULFATE (*CRX) 4 MG/ML INJ IV PUSH (12:13)
[2022-12-06] MEDS: ONDANSETRON INJ 4 MG/2 ML VIAL IV PUSH (12:13)
--- NOTE | 2022-12-06 12:18 | ED.ABDPAIN ---
HPI - Abdominal Pain General Chief Complaint: Abdominal Pain Stated Complaint: right flank pain Time Seen by Provider: 12/06/22 11:10 Source: patient and old records reviewed Mode of arrival: ambulatory Limitations: no limitations History of Present Illness HPI narrative: Patient is a 62 y/o female who presents to the ED with c/o R sided abdominal pain. Patient reports she developed pain last night into today. Pain has progressively worsened. Pain radiates around to her right mid back. She tried taking ibuprofen last night without much relief. She has not taken anything for pain today. Patient states pain feels similar to when she had diverticulitis with microperforation last March. Patient denies any other significant associated symptoms. Denies nausea, vomiting, diarrhea, constipation. She had 2 bowel movements yesterday and one this morning, which were normal. Denies rectal bleeding or melena. Denies urinary symptoms or history of kidney stones. Denies fevers. Related Data Home Medications Medication Instructions Recorded Confirmed Lactobacillus 1 cap PO DAILY 03/12/21 06/12/21 acidophilus-Bifidobac.animalis 2.5 billion cell capsule (Daily Probiotic) atorvastatin 10 mg tablet 10 mg PO DAILY 03/12/21 06/12/21 ibandronate 150 mg tablet 150 mg PO MONTHLY 03/12/21 06/12/21 Allergies Allergy/AdvReac Type Severity Reaction Status Date / Time No Known Allergies Allergy Verified 07/20/22 18:33 Review of Systems Review of Systems: CONSTITUTIONAL: Denies fever, chills, or sweats. CARDIOVASCULAR: Denies chest pain. RESPIRATORY: Denies dyspnea. GASTROINTESTINAL: See HPI. GENITOURINARY: Denies dysuria or hematuria. SKIN: Denies rash or itching. MUSCULOSKELETAL: See HPI for NEUROLOGIC: Denies headache, numbness, or weakness. All systems reviewed & are unremarkable except as noted in HPI and below PMFSH Past Medical History Medical History Asthma Breast cancer GERD (gastroesophageal reflux disease) GI bleed Hypercholesterolemia Hyperlipidemia Microscopic hematuria Dating back many years for which she has been extensively evaluated with no significant obvious etiology. Osteopenia Rectal polyp Surgical History Surgical History H/O mastectomy Left breast History of colonoscopy with polypectomy History of left breast biopsy Breast duct excision. Family History Family History Sibling Diverticulitis Father Family history of emphysema Social History Social History Social History: Surrogate decision maker: Dani Costello, spouse. Code status: Full code. Smoking status: Former smoker Alcohol intake: never Substance use: never Substance use type: does not use Living arrangements: with family Additional living arrangements comments: The patient lives with her and son in [place]. She is originally from [facility]. Occupation/Education: unemployed Gender identity (if verbalized by the patient): Female Spiritual care concerns: No Exam Narrative: GENERAL: Well appearing, well-nourished, non-toxic, in no acute distress. HEAD: Normocephalic, atraumatic. NECK: Supple. No adenopathy, no masses. RESPIRATORY: Airway patent, respirations nonlabored. Clear to auscultation bilaterally, no rales, rhonchi, wheezing. CARDIOVASCULAR: Regular rate and rhythm without murmurs, rubs, or gallops. Radial pulses 2+ and equal bilaterally. ABDOMINAL: Soft, tenderness in right mid and lower abdomen, no rebound, nondistended, no hepatosplenomegaly. Normoactive BS. MUSCULOSKELETAL: Moves all extremities. Strength/ROM intact without gross deformities. SKIN: Warm, dry, normal color. No rashes. NEURO: A&O X3. Speech clear. Cranial nerves II-XII grossly
== END 2022-12-06 14:00 | disposition home or self-care (01) ==
PROVIDERS: Emergency Provider Physician Assistant; PCP Student in an Organized Health Care Education/Training Program
DX: K57.32 Diverticulitis of large intestine without perforation or abscess without bleeding (principal); J45.909 Unspecified asthma, uncomplicated; E78.00 Pure hypercholesterolemia, unspecified; K21.9 Gastro-esophageal reflux disease without esophagitis; M85.80 Other specified disorders of bone density and structure, unspecified site; Z87.19 Personal history of other diseases of the digestive system; Z85.3 Personal history of malignant neoplasm of breast; Z87.891 Personal history of nicotine dependence; Z90.12 Acquired absence of left breast and nipple
CPT/HCPCS: 36415; 74177; 80053; 81001; 83690; 85025; 96361; 96374; 96375; 99284; J2270; J2405; J7030; Q9967

== ENCOUNTER 2023-03-26 09:00 | Outpatient (CLI) | payer OTHER, SELFPAY ==
--- NOTE | ~2023-03-26 | MM_ITS ---
EXAMINATION: MM screening [facility] BI w alexis HISTORY: Screening mammogram TECHNIQUE: Craniocaudal and mediolateral oblique 3-D tomosynthesis images were obtained and synthetic 2-D images were generated. CAD analysis was submitted and interpreted. COMPARISON: 02/15/2022, 11/05/2020, 01/29/2019 BREAST PARENCHYMAL COMPOSITION:There are scattered areas of fibroglandular density. FINDINGS: No suspicious mass, calcification, or architectural distortion are identified in either dionte ast to suggest malignancy. There has been no suspicious interval change. IMPRESSION: No mammographic evidence of malignancy. Recommend routine screening mammography in one year. BI-RADS Category 1: Negative Reviewed, dictated and finalized at location . [employer]ATH[employer] TRIMMER
== END 2023-03-26 09:01 | disposition home or self-care (01) ==
PROVIDERS: PCP Student in an Organized Health Care Education/Training Program; Visit Provider Student in an Organized Health Care Education/Training Program
DX: Z12.31 Encounter for screening mammogram for malignant neoplasm of breast (principal)
CPT/HCPCS: 77063; 77067

== ENCOUNTER 2023-08-23 14:50 | Emergency (ER) | payer OTHER, SELFPAY ==
--- NOTE | 2023-08-23 14:54 | ED.EYEPROB ---
HPI - Eye Problem General Chief complaint: Eye Problems Stated complaint: Left Eye Irritation Time Seen by Provider: 08/23/23 15:00 Source: patient Mode of arrival: ambulatory Limitations: no limitations History of Present Illness HPI Narrative: Ofelia is a 63-year-old female patient presenting to the clinic today with complaints of left lower eye lid pain and swelling x3 days. No fever chills. Denies any eye injury or foreign body in the eye. Related Data Home Medications Medication Instructions Recorded Confirmed atorvastatin 10 mg tablet 10 mg PO DAILY 03/12/21 08/23/23 ibandronate 150 mg tablet 150 mg PO MONTHLY 03/12/21 08/23/23 Allergies Allergy/AdvReac Type Severity Reaction Status Date / Time No Known Allergies Allergy Verified 08/23/23 14:51 Review of Systems Review of Systems: Pertinent positives per HPI. Patient denies any fever, chills, rash, headache, visual changes, dizziness, cough, runny nose, sore throat, shortness of breath, chest pain, palpitations, nausea, vomiting, diarrhea, constipation, abdominal pain, or any urinary issues. [facility] Past Medical History Medical History Asthma Breast cancer GERD (gastroesophageal reflux disease) GI bleed Hypercholesterolemia Hyperlipidemia Microscopic hematuria Dating back many years for which she has been extensively evaluated with no significant obvious etiology. Osteopenia Rectal polyp Surgical History Surgical History H/O mastectomy Left breast History of colonoscopy with polypectomy History of left breast biopsy Breast duct excision. Family History Family History Sibling Diverticulitis Father Family history of emphysema Social History Social History Social History: Surrogate decision maker: Dani Costello, spouse. Code status: Full code. Smoking status: Former smoker Alcohol intake: never Substance use: never Substance use type: does not use Living arrangements: with family Additional living arrangements comments: The patient lives with her and son in [place]. She is originally from [facility]. Occupation/Education: unemployed Gender identity (if verbalized by the patient): Female Spiritual care concerns: No Comments At the time of my signature, I reviewed and agree with the nursing past medical, surgical, social, and family history. There is no relevant family history pertinent to the patient complaint. Exam Narrative: General: Well-developed, well nourished, in no apparent distress Head: Normocephalic, atraumatic Eyes: Pupils equally round and reactive to light bilaterally, EOM intact, sclera and conjunctive clear, no discharge, left lower inner eyelid red, indurated, and swollen with tenderness to palpation Ears: TMs intact and clear, ear canals clear, no drainage, grossly hearing normal. Nose: Nares patent, no discharge, no inflammation, no sinus tenderness. Mouth: Oropharynx without lesions or masses, good dentition, MMM. Neck: Supple, trachea midline, no enlargement of anterior or posterior cervical nodes, no thyroid masses or goiter palpable. Cardio: Regular rate and rhythm, s1 and s2 normal, no murmur appreciated. Resp: Clear to auscultation bilaterally anteriorly and posteriorly, no rhonchi, rales, wheezing or rubs Course Course Emergency Course: Portions of this record may have been created with voice recognition software. Level of Care: Express Care Visit Vital Signs Vital signs: Vital Signs Temperature 36.6 C 08/23/23 15:00 Pulse Rate 62 08/23/23 15:00 Respiratory Rate 16 08/23/23 15:00 Blood Pressure 131/84 08/23/23 15:00 Pulse Oximetry 99 08/23/23 15:00 Oxygen Delivery Room Air 08/23/23 15:00 [place]
[2023-08-23 15:00] VITALS: BP 131/84; PULSE 62; RESP 16; TEMP 36.6; O2SAT 99
== END 2023-08-23 15:05 | disposition home or self-care (01) ==
PROVIDERS: Emergency Provider Nurse Practitioner Family; PCP Student in an Organized Health Care Education/Training Program
DX: H00.015 Hordeolum externum left lower eyelid (principal); J45.909 Unspecified asthma, uncomplicated; K21.9 Gastro-esophageal reflux disease without esophagitis; E78.00 Pure hypercholesterolemia, unspecified; E78.5 Hyperlipidemia, unspecified; M85.80 Other specified disorders of bone density and structure, unspecified site; Z85.3 Personal history of malignant neoplasm of breast; Z90.12 Acquired absence of left breast and nipple
CPT/HCPCS: 99213; G0463

== ENCOUNTER 2024-05-16 09:32 | Outpatient (CLI) | payer OTHER, SELFPAY ==
--- NOTE | ~2024-05-16 | MM_ITS ---
EXAMINATION: MM screening [facility] BI w alexis HISTORY: Screening mammogram TECHNIQUE: Craniocaudal and mediolateral oblique 3-D tomosynthesis images were obtained and synthetic 2-D images were generated. CAD analysis was submitted and interpreted. COMPARISON: 03/26/2023, 02/15/2022, 11/05/2020 BREAST PARENCHYMAL COMPOSITION:Not Dense. There are scattered areas of fibroglandular density. FINDINGS: No suspicious mass, calcification, or architectural distortion are identified in either dionte ast to suggest malignancy. There has been no suspicious interval change. IMPRESSION: No mammographic evidence of malignancy. Recommend routine screening mammography in one year. BI-RADS Category 1: Negative Reviewed, dictated and finalized at location . [employer]
== END 2024-05-16 09:33 | disposition home or self-care (01) ==
LOC: ANHIMG 09:35
PROVIDERS: PCP Student in an Organized Health Care Education/Training Program; Visit Provider Student in an Organized Health Care Education/Training Program
DX: Z12.31 Encounter for screening mammogram for malignant neoplasm of breast (principal)
CPT/HCPCS: 77063; 77067

== ENCOUNTER 2024-10-07 11:28 | Emergency (ER) | payer OTHER, SELFPAY ==
--- NOTE | ~2024-10-07 | XR_ITS ---
AP and oblique views of the right ribs, and PA chest radiograph Clinical History: Pain Findings: No rib fracture is seen. Osseous alignment is anatomic. Lungs are clear, without focal cons olidation or pleural effusion. Cardiomediastinal contour is within normal limits. Soft tissues are un remarkable. Impression: No rib fracture is seen. Clear lungs. Reviewed, dictated and finalized at [facility]. Impression: No rib fracture is seen. Clear lungs.
--- NOTE | 2024-10-07 11:32 | ED_ITS ---
HPI - Back Pain/Injury General Chief Complaint: Back Pain/Injury Stated Complaint: Back Pain Time Seen by Provider: 10/07/24 11:30 Source: patient Mode of arrival: ambulatory Limitations: no limitations History of Present Illness HPI Narrative: patient is a 64-year-old female who presents with right mid upper back pain after fall today. Was attempting to get into the bathtub when she lost her balance, fell back and hit her back on corner wall and heard a pop. Reports increased pain when raising her right arm above her head, and is tender to palpation. Denies numbness, tingling, lower extremity weakness, or bowel or bladder incontinence. Denies hitting head or loss of consciousness. Related Data Home Medications ?Medication ?Instructions ?Recorded ?Confirmed ?Last Taken ?Type atorvastatin 10 mg tablet 10 mg PO DAILY 03/12/21 08/23/23 Unknown History ibandronate 150 mg tablet 150 mg PO MONTHLY 03/12/21 08/23/23 02/12/21 History Allergies Allergy/AdvReac Type Severity Reaction Status Date / Time No Known Allergies Allergy Verified 10/07/24 11:42 Review of Systems Review of Systems: All systems reviewed & are unremarkable except as noted in HPI and below Constitutional: Constitutional: Denies body ache(s), Denies chills, Denies fatigue, Denies fever(s), Denies headache(s), Denies malaise and Denies weakness Eyes: Eyes: Denies blurry vision, Denies irritation and Denies loss of vision ENT: Denies otalgia, Denies headache(s), Denies nasal discharge, Denies sinus pain and Denies sore throat Cardiovascular: Cardiovascular: Denies chest pain, Denies irregular heart rhythm and Denies dyspnea Respiratory: Respiratory: Denies dyspnea Gastrointestinal: Gastrointestinal: Denies abdominal pain, Denies melena, Denies hematochezia, Denies diarrhea, Denies nausea and Denies vomiting Musculoskeletal: Musculoskeletal: Reports back pain (right middle back), Denies myalgias, Denies arthralgias, Denies numbness and Denies tingling Integumentary/Breasts: Skin/Breast: Denies swelling, Denies pruritus, Denies erythema, Denies rash, Denies unusual bruising and Denies wounds Neurologic: Denies headache(s), Denies loss of vision and Denies weakness Psychiatric: Psychiatric: Reports no additional psychiatric complaints Endocrine: Endocrine: Denies fatigue PMFSH Past Medical History Medical History Breast cancer GI bleed GERD (gastroesophageal reflux disease) Rectal polyp Asthma Hypercholesterolemia Osteopenia Microscopic hematuria Dating back many years for which she has been extensively evaluated with no significant obvious etiology. Hyperlipidemia Surgical History Surgical History H/O mastectomy Left breast History of left breast biopsy Breast duct excision. History of colonoscopy with polypectomy Family History Family History Sibling Diverticulitis Father Family history of emphysema Social History Social History Social History: Surrogate decision maker: Dani Costello, spouse. Code status: Full code. Smoking status: Former smoker Alcohol intake: never Substance use: never Substance use type: does not use Living arrangements: with family Additional living arrangements comments: The patient lives with her and son in [place]. She is originally from [facility]. Occupation/Education: unemployed Gender identity (if verbalized by the patient): Female Spiritual care concerns: No Comments At time of signature, agree with nursing past medical, surgical, social and family history. There is no relevant family history pertinent to the presenting complaint. Exam Const: General: cooperative, healthy appearing, comfortable, no acute distress and well nourished Nutritional Appearance: well nourished Orientation/consciousness: patient oriented x3 Limitations: no limitations HENMT: Head: normal to inspection, normocephalic and atraumatic Ears: hearing grossly normal bilaterally and external ears normal Face/Nose/Sinus: Normal external nose present, normal facial exam and face symmetric Face and sinus: normal facial exam and face symmetric Mouth: Yes lip normal Eyes: General: appearance normal, both eyes and all related structures Alignment and Position: alignment normal and position normal Periorbital: periorbital findings normal Eyelids: eyelids normal Pupils: Equal, round and reactive pupils present EOM: EOMs intact bilaterally Neck: Neck: normal visual inspection, full ROM and supple Chest: Chest palpation & inspection: normal inspection of the chest Resp: Effort & Inspection: normal respiratory effort and able to speak in complete sentences Auscultation: clear to auscultation bilaterally Cardio: Rate: regular rate Rhythm: regular rhythm Heart sounds: S1 normal heart sound present and S2 normal heart sound present GI: Inspection: normal to inspection Back/Spine/Pelvis: Back: No ecchymosis Cervical Spine: No Cervical spine tenderness and No step off deformity Thoracic/Lumbar Spine: paraspinal muscle tenderness on the right, No thoracic spinal tenderness and No lumbar spinal tenderness Skin: General skin exam: normal color and no rashes or lesions noted Neuro: General: patient oriented x3 and moves all extremities Cranial nerves: Yes Equal, round and reactive pupils present Speech: normal speech Gait exam (Neuro): Normal gait present Motor exam (neuro): 5/5 motor strength present throughout, Normal motor muscle tone present throughout and Motor abnormalities not present Sensory Exam: normal sensation Extrem: General: normal to inspection, full ROM and no edema Psych: Appearance: grossly normal and well kempt Mental Status: mental status grossly normal Speech and movement: Normal speech and movement present Affect: normal affect Attitude: cooperative Thought process: Normal thought process present Course Course Emergency Course: Patient is aware of diagnosis, understands and agrees to treatment plan. Anticipatory guidance given. Patient agrees to follow-up as directed and is aware of reasons to seek care at the emergency department. Portions of this record may have been created with voice recognition software Level of Care: Express Care Visit Vital Signs Vital signs: Reviewed MDM - Back Pain/Injury MDM Narrative Medical decision making narrative: No risk factors or findings concerning for epidural abscess, diskitis, vertebral osteomyelitis, cord compression, cauda equina, vertebral fracture or bone malignancy, AAA, or pyelonephritis. Patient instructed to consider further imaging and workup through their primary care physician as an outpatient if symptoms persist. Pt well hydrated appearing, in no respiratory distress, hemodynamically stable. Recommend supportive care. The patient is stable at time of discharge the clinical impression was discussed and the patient was given the opportunity to ask questions, which were addressed as completely as possible given the info rmation available at present. Anticipatory guidance and return to care precautions were discussed and the importance of primary care follow-up was stressed and encouraged. The patient voiced understanding of the plan, indications to return, and the need for follow-up. Exam findings show no acute concerns or changes Patient is appropriate for outpatient treatment and follow-up. Differential Diagnosis Differential diagnosis: Likely lumbar radiculopathy and thoracic back pain Medical Records Attestation: I reviewed the patient's medical records. Imaging Data Radiologist's impression: AP and oblique views of the right ribs, and PA chest radiograph Clinical History: Pain Findings: No rib fracture is seen. Osseous alignment is anatomic. Lungs are clear, without focal consolidation or pleural effusion. Cardiomediastinal contour is within normal limits. Soft tissues are unremarkable. Impression: No rib fracture is seen. Clear lungs. Discharge Plan Discharge Clinical Impression: Contusion of back wall of thorax, Fall Patient Disposition: Home Condition: Stable Instructions: Contusion in Adults (ED) Additional Instructions: You reported you fell.After any fall we expect you to be very sore over the next several days to 1 week. This is because your body was moved in different directions. Also sometimes people tense up during a fall. Either way, the muscles were strained after a fall and can be expected to be sore. This soreness is usually worse on the 2nd, 3rd and 4th days following a fall. Take the T ylenol as directed to help with pain and to decrease inflammation.Using Topicals such as biofreeze, bengay or aspercream will also help. Take the Baclofen as directed for muscle spasms. Do not drink, drive, operate machinery or do anything dangerous while taking this medication. It can make you sleepy.Drink plenty of fluids and get plenty of rest to help your body heal.Follow up with PCP in 7-10 days.Return to ER for problems. Patient Language: British Prescriptions: New baclofen 10 mg tablet 10 mg PO BID Qty: 10 0RF lidocaine 5 % adhesive patch,medicated 1 patch topical DAILY Qty: 15 0RF Rx Instructions: leave on most painful area for up to 12 hrs No Action atorvastatin 10 mg Tablet 10 mg PO DAILY ibandronate 150 mg tablet 150 mg PO MONTHLY Rx Instructions: Due 03/15/21 Follow-up/Referrals: Matthew,DO Justino [Primary Care Provider] - 3 Days Stand Alone Forms: Work/School Release IP Time of Disposition: 13:24
[2024-10-07 11:35] VITALS: BP 121/71; PULSE 75; RESP 16; TEMP 36.2; O2SAT 97
== END 2024-10-07 13:30 | disposition home or self-care (01) ==
PROVIDERS: Emergency Provider Nurse Practitioner Family; PCP Student in an Organized Health Care Education/Training Program
DX: S20.221A Contusion of right back wall of thorax, initial encounter (principal); W19.XXXA Unspecified fall, initial encounter; K21.9 Gastro-esophageal reflux disease without esophagitis; E78.00 Pure hypercholesterolemia, unspecified; M85.80 Other specified disorders of bone density and structure, unspecified site; E78.5 Hyperlipidemia, unspecified; J45.909 Unspecified asthma, uncomplicated; Z85.3 Personal history of malignant neoplasm of breast; Z90.12 Acquired absence of left breast and nipple; Z87.891 Personal history of nicotine dependence
CPT/HCPCS: 71101; 99213; G0463

== ENCOUNTER 2025-01-21 13:41 | Outpatient (CLI) | payer OTHER, SELFPAY ==
--- NOTE | ~2025-01-21 | DEXA_ITS ---
Bone Density Report Name: MACARIO PURCELL Age: 64 Sex: Female Ethnicity: Date of : 1960 Indication: osteopenia; Referring Provider: NENITA, PHIL Study: Bone densitometry was performed. Exam Date: January 21, 2025 Accession number: [id number] Bone Density: Region BMD T-score Z-score Classification AP Spine(L1-L4) 0.855 -1.7 0.0 Osteopenia Femoral Neck (Left) 0.652 -1.8 -0.5 Osteopenia Total Hip (Left) 0.871 -0.6 0.4 Normal Femoral Neck (Right) 0.664 -1.7 -0.4 Osteopenia Total Hip (Right) 0.825 -1.0 0.1 Normal Total Hip Mean 0.848 -0.8 0.3 Normal World Health Organization criteria for BMD impression classify patients as: Normal (T-score at or above -1.0), Osteopenia (T-score between -1.0 and -2.5), or Osteoporosis (T-score at or below -2.5). 10-year Fracture Risk(1): Major Osteoporotic Fracture 5.2% Hip Fracture 0.6% Reported Risk Factors: [place] (), Neck BMD=0.652, BMI=23.7 (1) FRAX(R) Version 3.08. Fracture probability calculated for an untreated patient. Fracture probability may be lower if the patient has received treatment. Previous Exams: Region Exam Age BMD T-score BMD Change BMD Change Date g/cm2 vs Baseline vs Previous AP Spine (L1-L4) 01/21/2025 64 0.855 -1.7 -0.123 (-12.6% 0.015 (1.8%) 10/23/2022 62 0.840 -1.9 -0.138 (-14.1% 0.007 (0.8%) 08/13/2020 60 0.833 -1.9 -0.145 (-14.8% -0.050 (-5.7%) 06/23/2016 55 0.883 -1.5 -0.095 (-9.7%) -0.056 (-6.0%) 12/06/2013 53 0.940 -1.0 -0.038 (-3.9%) -0.038 (-3.9%) 09/10/2011 51 0.978 -0.6 Total Hip(Left) 01/21/2025 64 0.871 -0.6 0.019 (2.3%)# 0.080 (10.2%)* 10/23/2022 62 0.791 -1.2 -0.061 (-7.2%) 0.014 (1.8%) 08/13/2020 60 0.777 -1.4 -0.075 (-8.8%) -0.007 (-0.9%) 06/23/2016 55 0.784 -1.3 -0.068 (-8.0%) -0.020 (-2.5%) 12/06/2013 53 0.804 -1.1 -0.048 (-5.6%) -0.048 (-5.6%) 09/10/2011 51 0.852 -0.7 Total Hip(Right) 01/21/2025 64 0.825 -1.0 -0.054 (-6.2%) 0.013 (1.6%) 10/23/2022 62 0.811 -1.1 -0.068 (-7.7%) 0.013 (1.6%) 08/13/2020 60 0.798 -1.2 -0.081 (-9.2%) -0.038 (-4.5%) 06/23/2016 55 0.837 -0.9 -0.043 (-4.9%) -0.017 (-2.0%) 12/06/2013 53 0.853 -0.7 -0.026 (-2.9%) -0.026 (-2.9%) 09/10/2011 51 0.879 -0.5 *Denotes significance at 95% confidence level, LSC for AP Spine = 0.022 g/cm2, LSC for Total Hip = 0.027 g/cm2 # Denotes dissimilar scan types or analysis methods Clinical Information Provided by Patient: Has used the following medications: Vitamin D, Calcium Patient maximum height was 67 Menopause Age: 46 Onset of menses at age 14 Number of children 2 Impression: The patient has low bone mass, based on the Left Femoral Neck T-score. The patient has an estimated ten-year risk of hip fracture of 0.6% and an estimated ten-year risk of major fracture of 5.2%, based on the WHO FRAX algorithm. No significant bone loss was observed. Discussion: BONE DENSITY IS LOW AT ONE OR MORE SKELETAL SITES. This patient's lowest T-score is low at one or more skeletal sites. It meets the World Health Organization's (WHO) criteria for ?low bone mass? (T-score between -1.0 and -2.5). The patient's 10-year risk of fracture as calculated by FRAX is less than the threshold where pharmacological therapy is recommended by the National Osteoporosis Foundation (NOF). However, all treatment decisions require clinical judgment and consideration of individual patient factors, including patient preferences, comorbidities, previous drug use, risk factors not captured in the FRAX model (e.g., frailty, falls, vitamin D deficiency, increased bone turnover, interval significant decline in bone density) and possible under or overestimation of fracture risk by FRAX. The patient should follow a healthful lifestyle (good nutrition with adequate calcium and vitamin D, and appropriate weight-bearing exercise). Follow-Up: Consider repeating this study in 2 to 3 years to reassess this patient's status, or sooner if there is some new clinical indication. Reported by: SUELLEN on 01/21/2025 2:26:00 PM. Reviewed, dictated and finalized at location A.
--- OUTSIDE RECORDS SUMMARY | 2025-01-21 14:04 | XMS_ITS | Encounter Summary ---
Author Organization [facility] Address [address] [place] [address] Care Team Providers Care Hand Outside Cutter Name Role Phone Justino Castro DO Primary Care Provider + Encounter Details Date Type Department Care Team (Late st Contact Info) Description 07/17/2020 Insane Logict Message Enc [facility] Family & Internal Medicine [facility] [address] [place] [phone] Justino Castro DO [address] [place] [address] RE: Question Social History Tobacco Use Types Packs/Day Years Used Date Smoking Tobacco: Never Smokeless Tobacco: Never Alcohol Use Standard Drinks/Week Comments No 0 (1 standard drink = 0.6 oz pur e alcohol) AUDIT-C Answer Date Recorded Frequency of Alcohol Consumption Never 05/14/2019 Average Number of Drinks Not on file 020 Frequency of Binge Drinking Not on file 05/02 PHQ-2 Answer Date Recorded PHQ-2 Score - If the patient scores above 3, please move on to questions 3-9 0 07/15/2020 Comments Unknown Sex and Gender Information Value Date Recorded Sex Assigned at Female 10/08/2024 3:26 PM CDT Legal Sex Female 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 No / Unsure 07/19/2020 10:13 AM CDT documented as of this encounter Plan of Treatment Not on file documented as of this encounter Visit Diagnoses Not on filedocumented in this encounter Additional Health Concerns Infection Onset Date Last Indicated Resolved Time COVID-19 Rule Out 2020 2020 08/01/2020 3:53 PM CDT COVID-19 Rule Out 05/04/2021 05/04/2021 05/04/2021 3:11 PM EMPLOYMENT CONSULTANT COVID-19 Confirmed 05/04/2021 05/04/2021 12:33 AM EMPLOYMENT CONSULTANT COVID-19 Rule Out 05/05/2021 05/04/2021 05/06/2021 1:56 AM EMPLOYMENT CONSULTANT Assessment Noted Time PHQ-9 Depression Total Score: 0 05/14/19 20 1:06 PM EMPLOYMENT CONSULTANT documented as of this encounter Care Teams Hand Outside Cutter Relationship Specialty Start Date End Date Justino Castro DO [address] [place] [address] PCP - General FAMILY PRACTICE 05/14/19 documented as of this encounter
--- OUTSIDE RECORDS SUMMARY | 2025-01-21 14:04 | XMS_ITS | Encounter Summary ---
Author Organization [facility] Address [address] [place] [address] Care Team Providers Care Edger Technician Name Role Phone Justino Castro DO Primary Care Provider + Encounter Details Date Type Department Care Team (Late st Contact Info) Description 05/22/2024 inWebo Technologiest Message Enc [facility] Medical Group Family & Internal Medicine [facility] [address] [place] [phone] Justino Castro DO [address] [place] [address] Mammogram Results Social History Tobacco Use Types Packs/Day Years Used Date Smoking Tobacco: Never Passive Smoke Exposure: Never Smokeless Tobacco: Never Alcohol Use Standard Drinks/Week Comments No 0 (1 standard drink = 0.6 oz pur e alcohol) AUDIT-C Answer Date Recorded Frequency of Alcohol Consumption Never 05/14/2019 Average Number of Drinks Not on file 020 Frequency of Binge Drinking Not on file 05/02 PHQ-2 Answer Date Recorded Patient Health Questionnaire-2 Score 0 09/21/2023 Comments No Sex and Gender Information Value Date Recorded Sex Assigned at Female 10/08/2024 3:26 PM CDT Legal Sex Female 12:49 PM 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
--- OUTSIDE RECORDS SUMMARY | 2025-01-21 14:04 | XMS_ITS | Encounter Summary ---
Author Organization [facility] Address [address] [place] [address] Care Team Providers Care Composing Room Machinist Name Role Phone Justino Castro DO Primary Care Provider + Encounter Details Date Type Department Care Team (Late st Contact Info) Description 12/18/2021 Senior Home Caret Message Enc [facility] Medical Group Family & Internal Medicine [facility] [address] [place] [phone] Justino Castro DO [address] [place] [address] Veins Social History Tobacco Use Types Packs/Day Years [...] please move on to questions 3-9 0 08/06/2021 Comments No Sex and Gender Information Value Date Recorded Sex Assigned at Female 10/08/2024 3:26 PM CDT Legal Sex Female 12:49 PM EMBOSSER APPRENTICE Gender Identity Female 10/08/2024 3:26 PM CDT Sexual Orientation Not on file documented as of this encounter Progress Notes * Justino Castro DO - 12/18/2021 12:34 PM CDT Please call and triage this pt. Uncontrollable bleeding may require ER evaluation. documented in this encounter Plan of Treatment Not on file documented as of this encounter Visit Diagnoses Not on filedocumented in this encounter Additional Health Concerns Assessment Noted Time PHQ-9 Depression Total Score: 0 05/14/19 20 1:06 PM EMBOSSER APPRENTICE documented as of this encounter Care Teams Composing Room Machinist Relationship Specialty Start Date End Date Justino Castro DO [address] [place] [address] PCP - General FAMILY PRACTICE 05/14/19 documented as of this encounter
--- OUTSIDE RECORDS SUMMARY | 2025-01-21 14:04 | XMS_ITS | Encounter Summary ---
Author Organization [facility] Address [address] [place] [address] Care Team Providers Care Director Alliance Marketing Name Role Phone Justino Castro DO Primary Care Provider + Encounter Details Date Type Department Care Team (Late st Contact Info) Description 03/29/[address] 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 Gender Identity Female 10/08/2024 3:26 PM CDT Sexual Orientation Not on file documented as of this encounter Plan of Treatment Not on file documented as of this encounter Visit Diagnoses Not on filedocumented in this encounter Additional Health Concerns Assessment Noted Time PHQ-9 Depression Total Score: 0 05/14/19 1:06 PM CLERICAL PRODUCTION WORKER documented as of this encounter Care Teams Director Alliance Marketing Relationship Specialty Start Date End Date Justino Castro DO [facility] [place] [address] PCP - General FAMILY PRACTICE 05/14/19 documented as of this encounter
--- OUTSIDE RECORDS SUMMARY | 2025-01-21 14:04 | XMS_ITS | Encounter Summary ---
Author Organization [facility] Address [facility] [place] [address] Care Team Providers Care Engineering Drafter Name Role Phone Justino Castro Primary Care Provider + Reason for Referral * Surgical (Routine) - Closed Specialty Diagnoses / Procedures Referred By Luana jones Referred To Contact Diagnoses Varicose veins of lower extremity with pain, right Procedures Case request operating room: GREATER SAPHENOUS ROBERT LASER ABLATION WITH STAB PHLEBECTOMY Ramo Willams MD [facility]. [facility] [address] [place] [address] Phone: tel: fax: Referral ID Status Reason Start Date Expiration Date Visits Re quested Visits Authorized [id number] Closed 03/17/2022 03/17/2023 1 1 IST HELPER Encounter Details Date Type Department Care Team (Late st Contact Info) Description 03/17/2022 Prep for Procedure [facility], [facility] [address] [place] [address] Ramo Willams MD [facility]. [facility] [address] [place] [address] Social History Tobacco Use Types Packs/Day Years [...] please move on to questions 3-9 0 12/23/2021 Comments No Sex and Gender Information Value Date Recorded Sex Assigned at Female 10/08/2024 3:26 PM CDT Legal Sex Female 12:49 PM FLORIST HELPER Gender Identity Female 10/08/2024 3:26 PM CDT Sexual Orientation Not on file COVID-19 Exposure Response Date Recorded In the last 10 days, have yo u been in contact with someone who was confirmed or suspected to have Coronavirus/COVID-19? No / Unsure 02/25/2022 12:33 PM CDT documented as of this encounter Plan of Treatment Scheduled Orders Name Type Priority Associated Diagnoses Orde r Schedule Case request operating room: GREATER SAPHENOUS ROBERT LASER ABLATION WITH STAB PHLEBECTOMY Case Request Routine Varicose veins of lower extremity with pain, right Once for 1 Occurrences starting 03/17/2022 until 03/17/2022 documented as of this encounter Visit Diagnoses Diagnosis Varicose veins of lower extremity with pain, right- Primary documented in this encounter Additional Health Concerns Assessment Noted Time PHQ-9 Depression Total Score: 0 05/14/19 20 1:06 PM FLORIST HELPER documented as of this encounter Care Teams Engineering Drafter Relationship Specialty Start Date End Date Justino Castro DO [address] [place] [address] PCP - General FAMILY PRACTICE 05/14/19 documented as of this encounter
--- OUTSIDE RECORDS SUMMARY | 2025-01-21 14:04 | XMS_ITS | Clinical Summary ---
Author Organization [facility] Address [facility] [place] [address] Care Team Providers Care Craft Artist Name Role Phone Justino Castro Primary Care Provider + Allergies No known active allergies Medications calcium carb-cholecalcifer ol 250-125 MG-UNIT tablet Take 1 tablet by mouth daily. Active atorvastatin (LIPITOR) 20 MG tabletIndications: Hyperlipidemia, unspecified hyperlipidemia type Take 1 tablet (20 mg total) by mouth nightly at bedtime. 90 tablet 1 5 Active valACYclovir (VALTREX) 1 g tabletIndications: Recurrent cold sores Take 2 tablets twice daily for one day at the first sign of recurrence 12 tablet 5 Active Active Problems Problem Noted Date Diagnosed Date Osteopenia of multiple sites 10/08/2024 Superficial phlebitis 07/08/2022 Varicose veins of right lower extremity with martha n 02/25/2022 Venous insufficiency of both lower extremities 1 Microscopic hematuria 03/19/2021 Normocytic anemia 03/19/2021 Vitamin D deficiency 05/14/2019 BMI 24.0-24.9, adult 05/14/2019 History of cold sores 05/14/2019 Hyperlipidemia Resolved Problems Problem Noted Date Diagnosed Date Resolved Date Hordeolum of left lower eyelid 09/21/2023 09/21/2023 History of colon polyps 07/08/202209/30 Diverticulitis of colon with perforation 03/19/2021 10/18/2022 Encounters Date Type Department Care Team Description 11/05/2024 MyChart Message Enc [facility] Medical Group Family & Internal Medicine [address] [phone] Justino Castro, Nexlizet are Nexletol from Last 3 Months Immunizations Immunization Administration Dates Next Due Fluzone 6 Months+ Quad (0.5 mL Prefilled Syringe) 01/03/2020,05/14/2019 Influenza (Generic) 01/03/2020,03/01/2018 Influenza Adult (Generic) 02/05/2022,10/2020,03/01/2018,2016,05/01/2013 MODERNA COVID-19 (12+) MRNA, LNP-S, PF, 100 MCG/ 0.5 ML DOSE 09/03/2020,08/06/2020 MODERNA COVID-19 (FLY SETTER NATHAN KAIN), MRNA, LNP-S, PF, 50 MCG/ 0.25 ML DOSE 08/11/2021,04/02/2021 Pneumococcal (Prevnar 20) 10/08/2024 Shingrix 01/06/2021,01/03/2020 Td (Generic) 06/03/1997 Tdap (Boostrix) 05/14/2019 Tetanus/Diptheria 06/03/1997 Family History Medical History Relation Comments None Mother Relation Status Comments Father Mother Alive Social History Tobacco Use Types Packs/Day Years Used Date Smoking Tobacco: Never Passive Smoke Exposure: Never Smokeless Tobacco: Never Tobacco Cessation:Counseling Given: Yes Alcohol Use Standard Drinks/Week Comments No 0 (1 standard drink = 0.6 oz pur e alcohol) AUDIT-C Answer Date Recorded Frequency of Alcohol Consumption Never 05/14/2019 Average Number of Drinks Not on file 020 Frequency of Binge Drinking Not on file 05/02 PHQ-2 Answer Date Recorded Patient Health Questionnaire-2 Score 0 10/08/2024 Comments No Sex and Gender Information Value Date Recorded Sex Assigned at Female 10/08/2024 3:26 PM CDT Legal Sex Female 12:49 PM GRAD INTERN Gender Identity Female 10/08/2024 3:26 PM CDT Sexual Orientation Not on file Last Filed Vital Signs Vital Sign Reading Time Taken Comments Blood Pressure 116/66 10/08/2024 3:28 PM CDT Pulse 74 10/08/2024 3:28 PM CDT Temperature 36.5 C (97.7 F) 10/08/2024 3:28 PM CDT Respiratory Rate 16 10/08/2024 3:28 PM CDT Oxygen Saturation 98% 10/08/2024 3:28 PM CDT Inhaled Oxygen Concentration - - Weight 71.4 kg (157 lb 4.8 oz) 10/08/2024 3:28 P M CDT Height 170.2 cm (5' 7) 10/08/2024 3:28 PM CDT Body Mass Index 24.64 10/08/2024 3:28 PM CDT Plan of Treatment Health Maintenance Due Date Last Done Comments Cervical Cancer Screening Pap Smear (Age 30 to 64) Every 3 Years 1960 Cervical Cancer Screening Pap with HPV Testing (Age 30 to 64) Every 5 Years 1990 Annual Physical 09/20/2024 09/21/2023, 09/30, 08/06/2021, Additional history exists COVID-19 Vaccine ( season) 2024 02/05/2022, 08/11/2021, 04/02/2021, Additional history exists Mammogram Screening 05/16/2025 05/16/2024, 03/26/2023, 02/15/2022, Additional history exists Cervical Cancer Screening with HPV 10/08/2025 Postponed from 1990 (Going to Outside Clinic) Colorectal Cancer Screening Colonoscopy (10 Years) 06/12/2026 06/12/2021, 06/12/2021, 06/12/2021 DTaP, Tdap and Td Vaccines (2 - Td or Tdap) 05/14/2029 05/14/2019, 06/03/1997, 06/03/1997 RSV Immunization or 60+ Years (1 - 1-dose 75+ series) 08/01/2035 Hepatitis C Completed 05/17/2019 Zoster Vaccines Completed 01/06/2021, 01/03/2020 PHQ-2 (Physician [place]) Completed 10/08/2024 Pneumococcal Vaccine: 50+ Years Completed 10/08/2024 Meningococcal B Vaccine Aged Out No l onger eligible based on patient's age to complete this topic Meningococcal Vaccine Aged Out No oswaldo prudence eligible based on patient's age to complete this topic RSV Immunizations Under 20 Months Aged Out No longer eligible based on patient's age to complete this topic Procedures Procedure Name Priority Date/Time Associated Diagnosis Comments MAMMOGRAM GENERIC (SCAN ORDER) 05/16/2024 COLONOSCOPY GENERIC (SCAN ORDER) 06/12/2021 HEPATITIS C ANTIBODY Routine 05/17/2019 11:18 AM GRAD INTERN Need for hepatitis C screening test from Last 3 Months or Most Recently Relevant to Health Maintenance Results * MAMMOGRAM GENERIC (SCAN ORDER) (05/16/2024) Anatomical Region Laterality Modality Other 05/16/2024 [facility] Scanned SCANNING Final Resu lt * COLONOSCOPY GENERIC (06/12/2021) 06/12/2021 Narrative 06/12/2021 Ordered by an unspecified provider. us Documents Scanned SCANNING Final Result * HEPATITIS C ANTIBODY (05/17/2019 11:18 AM GRAD INTERN) HEPATITIS C AB NON-REACTI VE NON-REACTI VE 05/17/2019 9:41 PM GRAD INTERN [facility] 05/17/2019 11:1 8 AM GRAD INTERN us Justino Castro DO LABORATORY Final Re sult [facility] [address] [place] [address], [place] [phone] from Last 3 Months or Most Recently Relevant to Health Maintenance Insurance GENERIC - COMMERCIAL Care Teams Craft Artist Relationship Specialty Start Date End Date Justino Castro DO [address] [place] [id number] PCP - General FAMILY PRACTICE 05/14/19
--- OUTSIDE RECORDS SUMMARY | 2025-01-21 14:04 | XMS_ITS | Encounter Summary ---
Author Organization [facility] Address [address] [place] [id number] Care Team Providers Care Labor Relations Worker Name Role Phone Justino Castro DO Primary Care Provider + Encounter Details Date Type Department Care Team (Late st Contact Info) Description 11/20/2022 Senict Message Enc [facility] Medical Group Family & Internal Medicine [facility] [address] [place] [phone] Justino Castro DO [address] [place] [address] Blood Test Concern Social History Tobacco Use Types Packs/Day Years [...] PM CDT 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 We could discuss metformin in the future, but I wouldn't start yet. documented in this encounter Plan of Treatment Not on file documented as of this encounter Visit Diagnoses Not on filedocumented in this encounter Additional Health Concerns Assessment Noted Time PHQ-9 Depression Total Score: 0 05/14/19 1:06 PM GRAIN DRIER documented as of this encounter Care Teams Labor Relations Worker Relationship Specialty Start Date End Date Justino Castro DO [address] [place] [id number] PCP - General FAMILY PRACTICE 05/14/19 documented as of this encounter
--- OUTSIDE RECORDS SUMMARY | 2025-01-21 14:04 | XMS_ITS | Encounter Summary ---
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 However, since it did go up despite increasing it last year, it'd be reasonable to increase it to atorvastatin 40 mg daily. * Justino Castro DO - 11/06/2024 11:12 AM CDT Nexletol and Nexlizet are brand name medicines that are only covered if pt fails 3 or more statin medications. Atorvastatin is generally more effective as well. Is there a problem with the atorvastatin? documented in this encounter Plan of Treatment Not on file documented as of this encounter Visit Diagnoses Not on filedocumented in this encounter Additional Health Concerns Assessment Noted Time PHQ-9 Depression Total Score: 0 05/14/19 20 1:06 PM CLUTCH OPERATOR documented as of this encounter Care Teams Curing Press Operator Relationship Specialty Start Date End Date Justino Castro DO [address] [place] [id number] PCP - General FAMILY PRACTICE 05/14/19 documented as of this encounter
== END 2025-01-21 13:42 | disposition home or self-care (01) ==
LOC: ANHFOHIMG 13:45
PROVIDERS: PCP Student in an Organized Health Care Education/Training Program; Visit Provider Nurse Practitioner
DX: Z78.0 Asymptomatic menopausal state (principal); M85.88 Other specified disorders of bone density and structure, other site; M85.852 Other specified disorders of bone density and structure, left thigh; M85.851 Other specified disorders of bone density and structure, right thigh
CPT/HCPCS: 77080

== ENCOUNTER 2025-02-08 10:43 | Emergency (ER) | payer OTHER, SELFPAY ==
[2025-02-08 10:55] VITALS: BP 123/75; PULSE 78; RESP 20; TEMP 36.8; O2SAT 100
--- NOTE | 2025-02-08 11:15 | ED.URI ---
HPI - URI/Sore Throat General Chief Complaint: Upper Respiratory Infection Stated Complaint: headache/body sore/fever Time Seen by Provider: 02/08/25 11:10 Source: patient, RN notes reviewed and old records reviewed Mode of arrival: ambulatory Limitations: no limitations History of Present Illness HPI Narrative: 64 year old female accompanied by spouse presents to express care with complaints of 1 days history of headache body aches, low grade fevers up to 99.9F and mucous production. Spuse reports that they did home COVID test that was psitive but it was an old one. Patient has been taking Claritin, Ibuprofen and NyQuil for her symptoms. MD elicited complaint: fever, rhinorrhea, nasal congestion and other (headache and body ache) Onset (ago): day(s) (1) Consistency: constant Severity: mild Able to tolerate fluids by mouth: Yes Treatments prior to arrival: ibuprofen and other (Claritin and NyQuil) Related Data Home Medications ?Medication ?Instructions ?Recorded ?Confirmed ?Last Taken ?Type atorvastatin 10 mg tablet 10 mg PO DAILY 03/12/21 08/23/23 Unknown History Allergies Allergy/AdvReac Type Severity Reaction Status Date / Time No Known Allergies Allergy Verified 02/08/25 10:57 Review of Systems Review of Systems: CONSTITUTIONAL: Reports malaise, chills, sweats, or fever. EYES: Denies visual changes, redness, or discharge. ENT: Reports rhinorrhea, congestion, sinus pain,no otalgia and no sore throat. CARDIOVASCULAR: Denies chest pain, palpitations, or edema. RESPIRATORY: Reports occasional cough.? Denies dyspnea. GASTROINTESTINAL: Denies abdominal pain, nausea, vomiting, diarrhea SKIN: Denies rash or itching. MUSCULOSKELETAL: Reports myalgia. NEUROLOGIC: reports headache. All systems reviewed & are unremarkable except as noted in HPI and below PMFSH Past Medical History Medical History Breast cancer GI bleed GERD (gastroesophageal reflux disease) Rectal polyp Asthma Hypercholesterolemia Osteopenia Microscopic hematuria Dating back many years for which she has been extensively evaluated with no significant obvious etiology. Hyperlipidemia Surgical History Surgical History H/O mastectomy Left breast History of left breast biopsy Breast duct excision. History of colonoscopy with polypectomy Family History Family History Sibling Diverticulitis Father Family history of emphysema Social History Social History Social History: Surrogate decision maker: Dani Costello, spouse. Code status: Full code. Smoking status: Former smoker Alcohol intake: never Substance use: never Substance use type: does not use Living arrangements: with family Additional living arrangements comments: The patient lives with her and son in [place]. She is originally from [facility]. Occupation/Education: unemployed Gender identity (if verbalized by the patient): Female Spiritual care concerns: No Comments At time of signature, agree with nursing past medical, surgical, social and family history. There is no relevant family history pertinent to the presenting complaint Exam Narrative: GENERAL: Well-appearing, well-nourished, and in no acute distress. HEAD: Normocephalic EYES: PERRLA, conjunctivae clear ENT: Nares clear, turbinates edematous and erythematous, clear discharge, sinus pressure and headache. Mucous membranes moist. TM pearly serra with dull light reflex bilaterally; no tragal tenderness. Oropharynx erythematous without lesions. Tonsils not enlarged and without exudate, no drooling, no hoarseness, no trismus, uvula midline.post nasal drainage NECK: Supple. No lymphadenopathy CHEST: Clear to auscultation, breath sounds equal. No wheezing, rhonchi, rales, or stridor. No respiratory distress, speaks in full sentences.no acute cough noted SAO2 100% on room air HEART: Regular rate and rhythm. No murmur heard. SKIN: Warm, dry, no rash. NEURO: Alert and oriented x3. PSYCH: Normal mood and affect Course Course Emergency Course: Patient is aware of diagnosis, understands and agrees to treatment plan.? Anticipatory guidance given.? Patient agrees to follow-up as directed and is aware of reasons to seek care at the emergency department. Portions of this record may have been created with voice recognition software Level of Care: Express Care Visit Vital Signs Vital signs: Vital Signs Temperature 36.8 C 02/08/25 10:55 Pulse Rate 78 02/08/25 10:55 Respiratory Rate 20 02/08/25 10:55 Blood Pressure 123/75 10/10/25 10:55 Pulse Oximetry 100 02/08/25 10:55 Oxygen Delivery Room Air 02/08/25 10:55 Temperature 36.8 C 02/08/25 10:55 Pulse Rate 78 02/08/25 10:55 Respiratory Rate 20 02/08/25 10:55 Blood Pressure 123/75 02/08/25 10:55 Pulse Oximetry 100 02/08/25 10:55 Oxygen Delivery Room Air 02/08/25 10:55 Reviewed MDM - URI/Sore Throat MDM Narrative Medical decision making narrative: Differential diagnosis considered: Hubbard virus, strep pharyngitis, allergic rhinitis, upper respiratory tract infection, sinusitis, rhinosinusitis, nasopharyngitis. viral pharyngitis, otitis media, otitis externa, pneumonia, bronchitis, viral cough syndrome, viral syndrome, and influenza.? Exam findings show no acute concerns or changes; patient is non-toxic appearing and is in no distress.? Patient is appropriate for outpatient treatment and follow-up. Differential Diagnosis Differential diagnosis: Likely upper respiratory infection, sinusitis, viral infection, influenza and other (COVID) Lab Data Attestation: I reviewed the patient's lab results. Lab results narrative: Influenza A negative, Influenza B negative, COVID antigen negative Labs: Lab Results 02/08/25 02/08/25 Range/Units 11:20 11:29 POC Influenza A Ag Negative Negative (Negative) POC Influenza B Ag Negative Negative (Negative) POC SARS CoV-2 Ag Negative Negative (Negative) reviewed Critical Care Time Critical Care Time Critical Care Time: No Discharge Plan Discharge Clinical Impression: Upper respiratory infection, viral Patient Disposition: Home Condition: Stable Instructions: Upper Respiratory Infection (ED) Additional Instructions: Increase fluids especially juices and water [id number] cough and cold medicine of your choice for your symptoms Zyrtec Claritin or [place] daily include plain Sudafed in a.m. heat to the face 20-30 minutes 4-6 times a day for pain Salt water gargles, throat lozenges or throat sprays as desired Tylenol or ibuprofen for any fever pain package instructions If your symptoms persist, change or worsen significantly before you can contact your personal physician then please, without delay, go to the emergency department for further evaluation. Follow-up with PCP in 7-10 days or sooner if needed nasal spray daily for package instructions Patient Language: Greek Prescriptions: New azelastine 137 mcg (0.1 %) spray,non-aerosol 137 mcg intranasal Q12H Qty: 30 0RF Rx Instructions: administer into each nostril No Action atorvastatin 10 mg Tablet 10 mg PO DAILY Follow-up/Referrals: Matthew,DO Justino [Primary Care Provider] Time of Disposition: 11:29 Quality [place] Coma Scale Eyes: Open Verbal: Oriented and Alert Motor: Follows Commands Christian Coma Total Score: 15
[2025-02-08 11:31] LABS: EDCOVIDSCREEN Negative (Negative); EDINFLUASCREEN Negative (Negative); EDINFLUBSCREEN Negative (Negative)
[2025-02-08 11:31] LABS: EDCOVIDSCREEN Negative (Negative); EDINFLUASCREEN Negative (Negative); EDINFLUBSCREEN Negative (Negative)
== END 2025-02-08 11:35 | disposition home or self-care (01) ==
PROVIDERS: Emergency Provider Registered Nurse; PCP Student in an Organized Health Care Education/Training Program
DX: J06.9 Acute upper respiratory infection, unspecified (principal); Z20.822 Contact with and (suspected) exposure to COVID-19; Z87.891 Personal history of nicotine dependence; E78.00 Pure hypercholesterolemia, unspecified; M85.80 Other specified disorders of bone density and structure, unspecified site; J45.909 Unspecified asthma, uncomplicated; K21.9 Gastro-esophageal reflux disease without esophagitis; Z85.3 Personal history of malignant neoplasm of breast; Z90.12 Acquired absence of left breast and nipple
CPT/HCPCS: 87426; 87804; 99213; G0463